=== PATIENT | female | born 1980 | race Caucasian/White ===

== ENCOUNTER 2017-07-18 21:23 | Emergency (ER) | payer MEDICAID ==
[2017-07-18] MEDS ORDERED: Sodium Chloride 0.9% 1,000 ML IV ONE (21:47)
[2017-07-18] MEDS ORDERED: Ondansetron 4 MG/2 ML SDV IVPUSH ONE (21:47)
[2017-07-18] MEDS ORDERED: Morphine 4 MG/ML Syringe IVPUSH ONE (22:50)
--- NOTE | 2017-07-18 23:02 | EDM.PDOC ---
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 There is concern of nonviable and eventual miscarriage patient is aware of this. No fever nausea vomiting chills sweats no low back pain vaginal discharge bleeding or fluid leakage [place] has history of 5 previous births resulting in viable infants no history of miscarriage/ LMP May 17 uncertain dates ] Review of systems: As per history of present illness and below otherwise all systems reviewed and negative. Past medical history: As per history of present illness and as reviewed below otherwise noncontributory. Surgical history: As per history of present illness and as reviewed below otherwise noncontributory. Social history: No reported history of drug or alcohol abuse. Family history: As per history of present illness and as reviewed below otherwise noncontributory. Physical exam: HEENT: Atraumatic, normocephalic, pupils reactive, negative for conjunctival pallor or scleral icterus, mucous membranes moist, throat clear, neck supple, nontender, trachea midline. Lungs: Clear to auscultation, breath sounds equal bilaterally, chest nontender. Heart: S1S2, regular, negative for clicks, rubs, or JVD. Abdomen: Soft, nondistended, nontender. Negative for masses or hepatosplenomegaly. Negative for costovertebral tenderness. Pelvis: Stable nontender. Genitourinary: External exam no mass scar or lesion internal exam no products conception no bleeding cervix is closed no cervical motion tenderness Rectal: Deferred. Extremities: Atraumatic, negative for cords or calf pain. Neurovascular unremarkable. Neuro: Awake, alert, oriented. Cranial nerves II through XII unremarkable. Cerebellum unremarkable. Motor and sensory unremarkable throughout. Exam nonfocal. Diagnostics: [CBC CMP UA hCG Quant ABO type OB ultrasound first trimester Therapeutics: [][place] Zofran Follow-up with OB as scheduled for continued management Impression: Pelvic pain Likely blighted ovum cervix closed 10 weeks by uncertain dates 7 weeks by ultrasound hCG levels do not correlate and are lower than yesterday [ABO type O positive] Definitive disposition and diagnosis as appropriate pending reevaluation and review of above. 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 ED EXAM, GENERAL - Physical Exam Exam: See Below Course - Vital Signs Last Recorded V/S: Last Vital Signs Temp 98 F 07/18/17 21:23 Pulse 93 07/18/17 21:23 Resp 18 07/18/17 21:23 BP 115/73 07/18/17 21:23 Pulse Ox 98 07/18/17 21:23 - Orders/Labs/Meds Orders: Active Orders 24 hr Category Date Time Status OB 1st Tri Sgl 1st Gest [US] Stat Exams 07/18/17 23:00 Taken UA W/MICROSCOPIC [URIN] Stat Lab 07/18/17 22:13 Ordered Labs: Laboratory Tests 07/18/17 07/18/17 07/18/17 Range/Units 22:02 22:02 22:02 WBC 9.95 (4.0-11.0) K/uL RBC 4.33 (4.30-5.90) M/uL Hgb 13.5 (12.0-16.0) g/dL Hct 39.2 (36.0-46.0) % MCV 90.5 (80.0-98.0) fL MCH 31.2 (27.0-32.0) pg MCHC 34.4 (31.0-37.0) g/dL RDW Std Deviation 41.1 (28.0-62.0) fl RDW Coeff of Sadiq 12 (11.0-15.0) % Plt Count 243 (150-400) K/uL MPV 8.70 (7.40-12.00) fL Neut % (Auto) 61.7 (48.0-80.0) % Lymph % (Auto) 30.4 (16.0-40.0) % Socorro % (Auto) 6.8 (0.0-15.0) % Eos % (Auto) 0.9 (0.0-7.0) % Baso % (Auto) 0.2 (0.0-1.5) % Neut # (Auto) 6.1 H (1.4-5.7) K/uL Lymph # (Auto) 3.0 H (0.6-2.4) K/uL Socorro # (Auto) 0.7 (0.0-0.8) K/uL Eos # (Auto) 0.1 (0.0-0.7) K/uL Baso # (Auto) 0.0 (0.0-0.1) K/uL Nucleated RBC % 0.0 /100WBC Nucleated RBCs # 0 K/uL Sodium 139 (136-145) mmol/L Potassium 3.6 (3.5-5.1) mmol/L Chloride 106 (98-107) mmol/L Carbon Dioxide 24.4 (21.0-32.0) mmol/L BUN 12 (7.0-18.0) mg/dL Creatinine 0.7 (0.6-1.0) mg/dL Est Cr Clr Drug Dosing 109.92 mL/min Estimated GFR (MDRD) > 60.0 ml/min Glucose 101 (74-106) mg/dL Calcium 9.0 (8.5-10.1) mg/dL Total Bilirubin 0.2 (0.2-1.0) mg/dL AST 12 L (15-37) IU/L ALT 20 (14-63) IU/L Alkaline Phosphatase 68 (46-116) U/L Total Protein 6.9 (6.4-8.2) g/dL Albumin 3.6 (3.4-5.0) g/dL Globulin 3.3 (2.0-3.5) g/dL Albumin/Globulin Ratio 1.1 L (1.3-2.8) HCG, Quant 9628.0 mIU/mL Urine Color Urine Appearance Urine pH (5.0-8.0) Ur Specific Reedy (1.001-1.035) Urine Protein (NEGATIVE) mg/dL Urine Glucose (UA) (NEGATIVE) mg/dL Urine Ketones (NEGATIVE) mg/dL Urine Occult Blood (NEGATIVE) Urine Nitrite (NEGATIVE) Urine Bilirubin (NEGATIVE) Urine Urobilinogen (<2.0) EU/dL Ur Leukocyte Esterase (NEGATIVE) Urine RBC (0-2/HPF) Urine WBC (0-5/HPF) Ur Epithelial Cells (NONE-FEW) Urine Bacteria (NEGATIVE) Urine Mucus (NONE-MOD) Blood Type O POSITIVE 07/18/17 Range/Units 22:13 WBC (4.0-11.0) K/uL RBC (4.30-5.90) M/uL Hgb (12.0-16.0) g/dL Hct (36.0-46.0) % MCV (80.0-98.0) fL MCH (27.0-32.0) pg MCHC (31.0-37.0) g/dL RDW Std Deviation (28.0-62.0) fl RDW Coeff of Sadiq (11.0-15.0) % Plt Count (150-400) K/uL MPV (7.40-12.00) fL Neut % (Auto) (48.0-80.0) % Lymph % (Auto) (16.0-40.0) % Socorro % (Auto) (0.0-15.0) % Eos % (Auto) (0.0-7.0) % Baso % (Auto) (0.0-1.5) % Neut # (Auto) (1.4-5.7) K/uL Lymph # (Auto) (0.6-2.4) K/uL Socorro # (Auto) (0.0-0.8) K/uL Eos # (Auto) (0.0-0.7) K/uL Baso # (Auto) (0.0-0.1) K/uL Nucleated RBC % /100WBC Nucleated RBCs # K/uL Sodium (136-145) mmol/L Potassium (3.5-5.1) mmol/L Chloride (98-107) mmol/L Carbon Dioxide (21.0-32.0) mmol/L BUN (7.0-18.0) mg/dL Creatinine (0.6-1.0) mg/dL Est Cr Clr Drug Dosing mL/min Estimated GFR (MDRD) ml/min Glucose (74-106) mg/dL Calcium (8.5-10.1) mg/dL Total Bilirubin (0.2-1.0) mg/dL AST (15-37) IU/L ALT (14-63) IU/L Alkaline Phosphatase (46-116) U/L Total Protein (6.4-8.2) g/dL Albumin (3.4-5.0) g/dL Globulin (2.0-3.5) g/dL Albumin/Globulin Ratio (1.3-2.8) HCG, Quant mIU/mL Urine Color YELLOW Urine Appearance CLEAR Urine pH 6.0 (5.0-8.0) Ur Specific Reedy 1.020 (1.001-1.035) Urine Protein NEGATIVE (NEGATIVE) mg/dL Urine Glucose (UA) NEGATIVE (NEGATIVE) mg/dL Urine Ketones NEGATIVE (NEGATIVE) mg/dL Urine Occult Blood NEGATIVE (NEGATIVE) Urine Nitrite NEGATIVE (NEGATIVE) Urine Bilirubin NEGATIVE (NEGATIVE) Urine Urobilinogen 0.2 (<2.0) EU/dL Ur Leukocyte Esterase NEGATIVE (NEGATIVE) Urine RBC NONE SEEN (0-2/HPF) Urine WBC 0-1 (0-5/HPF) Ur Epithelial Cells OCCASIONAL (NONE-FEW) Urine Bacteria RARE (NEGATIVE) Urine Mucus LIGHT (NONE-MOD) Blood Type Meds: Medications Discontinued Medications Generic Name Dose Route Start Last Admin Trade Name Mitesh PRN Reason Stop Dose Admin Sodium Chloride 1,000 mls @ 999 mls/hr 07/18/17 21:47 07/18/17 22:09 Normal Saline IV 07/18/17 22:47 999 mls/hr STAT ONE Administration Morphine Sulfate 2 mg 07/18/17 22:50 07/18/17 23:08 Morphine IVPUSH 07/18/17 22:51 2 mg ONETIME ONE Administration Ondansetron HCl 8 mg 07/18/17 21:47 07/18/17 22:10 Zofran IVPUSH 07/18/17 21:48 8 mg ONETIME ONE Administration Departure - Departure Time of Disposition: 00:47 Disposition: Home, Self-Care 01 Condition: Good Clinical Impression: Pelvic pain - Discharge Information Referrals: Sahra Mckee DO [Primary Care Provider] - Forms: ED Department Discharge Additional Instructions: The following information is given to patients seen in the emergency department who are being discharged to home. This information is to outline your options for follow-up care. We provide all patients seen in our emergency department with a follow-up referral. The need for follow-up, as well as the timing and circumstances, are variable depending upon the specifics of your emergency department visit. If you don't have a primary care physician on staff, we will provide you with a referral. We always advise you to contact your personal physician following an emergency department visit to inform them of the circumstance of the visit and for follow-up with them and/or the need for any referrals to a consulting specialist. The emergency department will also refer you to a specialist when appropriate. This referral assures that you have the opportunity for follow-up care with a specialist. All of these measure are taken in an effort to provide you with optimal care, which includes your follow-up. Under all circumstances we always encourage you to contact your private physician who remains a resource for coordinating your care. When calling for follow-up care, please make the office aware that this follow-up is from your recent emergency room visit. If for any reason you are refused follow-up, please contact the [facility] emergency department at and asked to speak to the emergency department charge nurse. - My Orders Last 24 Hours: My Active Orders 07/18/17 22:13 UA W/MICROSCOPIC [URIN] Stat 07/18/17 23:00 OB 1st Tri Sgl 1st Gest [US] Stat - Assessment/Plan Last 24 Hours: My Active Orders 07/18/17 22:13 UA W/MICROSCOPIC [URIN] Stat 07/18/17 23:00 OB 1st Tri Sgl 1st Gest [US] Stat
[2017-07-18 23:09] LABS: CHLORIDE,CL 106 mmol/L (98-107); SODIUM,NA 139 mmol/L (136-145)
--- NOTE | 2017-07-19 09:53 | US ---
EXAM DATE: 07/18/17 PATIENT'S AGE: 37 Patient: CHATA DANIELLE Facility: [place], [place] Site . Site : [id number] Study: US OB Pelvis -07/18/2017 11:56:16 PM Ordering Physician: Dario Shepard Final Report: HISTORY: Severe cramping, 10 weeks . FINDINGS: Mild grayscale static images from a transabdominal OB ultrasound were evaluated. The uterus measures 10.6 x 8.0 x 7.7 cm. It contains an irregularly shaped gestational sac measuring 3.6 x 1.5 x 2.4 cm with a mean sac diameter of 2.49 cm consistent with 7 weeks 5 days. This is not correlate with LMP date of 10 weeks 2 days. No yolk sac or pole is identified. The right ovary measures 4.8 x 3.2 x 2.4 cm and is normal in appearance. The left ovary measures 3.5 x 1.5 x 2.3 cm and is normal in appearance. IMPRESSION: Irregularly shaped gestational sac with mean sac diameter of 2.49 cm cyst and with 7 weeks 5 days. It does not contain a yolk sac or pole. This is suspicious for a nonviable . Current criteria for definite failure includes nonvisualization of an embryo in a gestational sac with mean sac diameter of at least 2.5 mm. Consider close interval follow up to confirm nonviable . Dictated by Kristin Ocampo MD @ 07/19/2017 12:06:57 AM Dictated by: Kristin Ocampo MD @ 07/19/2017 00:07:50 (Electronic Signature) Report Signed by Proxy. LING
[2017-07-19] MEDS ORDERED: Propofol 200 MG/20 ML SDV ONE (10:54)
[2017-07-19] MEDS ORDERED: Midazolam 1 MG/ML 2 ML SDV ONE (10:54)
[2017-07-19] MEDS ORDERED: fentaNYL 100 MCG/2 ML SDV ONE (10:54)
[2017-07-19] MEDS ORDERED: diphenhydrAMINE 50 MG/ML SDV ONE (10:55)
[2017-07-19] MEDS ORDERED: Ondansetron 4 MG/2 ML SDV ONE (10:55)
== END 2017-07-19 01:02 | disposition home or self-care (01) ==
LOC: MW.ED 21:23
DX: O99.89 Other specified diseases and conditions complicating pregnancy, childbirth and the puerperium (principal); R10.2 Pelvic and perineal pain; O99.311 Alcohol use complicating pregnancy, first trimester; F17.210 Nicotine dependence, cigarettes, uncomplicated; Z3A.10 10 weeks gestation of pregnancy
CPT/HCPCS: 36415; 76801; 80053; 81001; 84702; 85025; 86900; 86901; 96361; 96374; 96375; 99284; J1200; J2250; J2270; J2405; J3010; J7040; 99283; J2704

== ENCOUNTER 2017-07-19 10:52 | Day surgery (SDC) | payer MEDICAID ==
[2017-07-19] MEDS ORDERED: Lactated Ringers 1,000 ML IV SCH ×2 (11:30→18:45)
[2017-07-19] MEDS ORDERED: Doxycycline 200 MG in Dextrose 5% in Water 250 ML IV SCH ×2 (11:45)
--- NOTE | 2017-07-19 11:48 | PCM.PREANE ---
Preanesthetic Assessment - Anesthesia/Transfusion/Family Hx Anesthesia History: Prior Anesthesia Without Reaction Family History of Anesthesia Reaction: No Transfusion History: No Prior Transfusion(s) Intubation History: Unknown - Review of Systems General: No Symptoms Pulmonary: No Symptoms Cardiovascular: No Symptoms Gastrointestinal: Abdominal Pain Neurological: No Symptoms Other: Reports: None - Physical Assessment O2 Sat by Pulse Oximetry: 97 Respiratory Rate: 16 Vital Signs: Last Vital Signs Temp 36.7 C 07/19/17 11:21 Pulse 70 07/19/17 11:21 Resp 16 07/19/17 11:21 BP 107/58 L 07/19/17 11:21 Pulse Ox 97 07/19/17 11:21 Height: 1.73 m Weight: 99.337 kg ASA Class: 2E Mental Status: Alert & Oriented x3 Airway Class: Mallampati = 2 Dentition: Reports: Normal Dentition Thyro-Mental Finger Breadths: 3 Mouth Opening Finger Breadths: 3 ROM/Head Extension: Full Lungs: Clear to Auscultation, Normal Respiratory Effort Cardiovascular: Regular Rate, Regular Rhythm - Allergies Allergies/Adverse Reactions: Allergies Allergy/AdvReac Type Severity Reaction Status Date / Time No Known Allergies Allergy Verified 07/19/17 10:56 - Blood Blood Available: No - Anesthesia Plan Pre-Op Medication Ordered: None - Acknowledgements Anesthesia Type Planned: General Anesthesia Pt an Appropriate Candidate for the Planned Anesthesia: Yes Alternatives and Risks of Anesthesia Discussed w Pt/Guardian: Yes Pt/Guardian Understands and Agrees with Anesthesia Plan: Yes PreAnesthesia Questionnaire HEENT History: Reports: Hard of Hearing, Other (See Below) Other HEENT History: wears glasses, has right hearing aide Gastrointestinal History: Reports: Other (See Below) (h/o gastric ulcer '12) 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: Musculoskeletal History: Reports: Back Pain, Chronic Other Musculoskeletal History: has spinal stenosis Neurological History: Reports: Concussion, Migraines, Other (See Below) Other Neuro History: hx of motion sickness Psychiatric History: Reports: Anxiety, Depression Other Psychiatric History: has not taken any meds during this Endocrine/Metabolic History: Reports: Obesity/BMI 30+ - Past Surgical History HEENT Surgical History: Reports: Oral Surgery Other HEENT Surgeries/Procedures: wisdom teeth Female Surgical History: Reports: Section - SUBSTANCE USE Smoking Status *Q: Current Every Day Smoker (1/2 ppd) Tobacco Use Within Last Twelve Months: Cigarettes Recreational Drug Use History: No - HOME MEDS Home Medications: Home Meds #103/Iron Fumarate/Fa [ ] 1 tab PO DAILY 07/18/17 [ History] - CURRENT (IN HOUSE) MEDS Current Meds: Current Medications Lactated Ringer's (Ringers, Lactated) 1,000 mls @ 100 mls/hr IV ASDIRECTED SELVIN Doxycycline Hyclate 200 mg/ (Dextrose/Water) 250 mls @ 125 mls/hr IV Q12H SELVIN
[2017-07-19] MEDS ORDERED: ceFAZolin 2 GM in Premix Bag 1 BAG IV ONE (11:50)
[2017-07-19] MEDS: fentaNYL 100 MCG/2 ML SDV IVPUSH PRN ×2 (12:02→12:52)
[2017-07-19] MEDS ORDERED: fentaNYL 100 MCG/2 ML SDV ONE (16:21)
[2017-07-19] MEDS ORDERED: Propofol 200 MG/20 ML SDV ONE (16:21)
[2017-07-19] MEDS ORDERED: Midazolam 1 MG/ML 2 ML SDV ONE (16:22)
[2017-07-19] MEDS ORDERED: Lidocaine 2% 5 ML SDV ONE (16:22)
[2017-07-19] MEDS ORDERED: Carboprost Tromethamine 250 MCG/1 ML Amp ONE (17:08)
[2017-07-19] MEDS ORDERED: Methylergonovine 0.2 MG/1 ML Amp ONE (17:08)
[2017-07-19] MEDS ORDERED: HYDROmorphone 2 MG/ML SDV ONE (17:17)
[2017-07-19] MEDS ORDERED: Dexamethasone 4 MG/ML 5 ML MDV ONE (17:57)
[2017-07-19] MEDS ORDERED: ceFAZolin/Dextrose,Iso-Osmotic 2 GM/50 ML Duplex Bag IV ONE (18:03)
[2017-07-19] MEDS ORDERED: Ketorolac 30 MG/ML SDV ONE (18:17)
[2017-07-19] MEDS ORDERED: Ondansetron 4 MG/2 ML SDV ONE (18:18)
--- NOTE | 2017-07-19 18:31 | PCM.OPNOTE ---
- General Post-Op/Procedure Note Date of Surgery/Procedure: 07/19/17 Operative Procedure(s): Suction dilatation and curettage Findings: Anteverted mobile uterus, 7 weeks size. Closed cervix. Moderate amount of POC retrieved. Pre Op Diagnosis: Missed Post-Op Diagnosis: Same Anesthesia Technique: General LMA Primary Surgeon: Wandy Mcallister Pathology: Products of conception Fluid Replacement, Intraop: 2,000 EBL in mLs: 100 Complications: None Condition: Good
[2017-07-19] MEDS ORDERED: Acetaminophen/oxyCODONE 325-5 MG Tab PO PRN (18:33)
--- NOTE | 2017-07-19 18:50 | PCM.POSTAN ---
POST ANESTHESIA ASSESSMENT - MENTAL STATUS Mental Status: Alert, Oriented - RESPIRATORY Respiratory Status: Respiratory Rate WNL, Airway Patent, O2 Saturation Stable - CARDIOVASCULAR CV Status: Pulse Rate WNL, Blood Pressure Stable - GASTROINTESTINAL GI Status: No Symptoms - PAIN Pain Score: 0 - POST OP HYDRATION Hydration Status: Adequate & Stable
--- NOTE | 2017-07-19 21:07 | OR ---
SURGEON: aWndy Mcallister MD DATE OF PROCEDURE: 07/19/2017 PREOPERATIVE DIAGNOSIS: Missed . POSTOPERATIVE DIAGNOSIS: Missed . PROCEDURE: Suction, dilatation, and curettage. ANESTHESIA: General LMA. IV FLUIDS: 2000 mL. ESTIMATED BLOOD LOSS: 100 mL. COMPLICATIONS: None. DISPOSITION: The patient was taken to recovery room in a stable condition. FINDINGS: Anteverted mobile uterus 7-week size. No adnexal masses. Cervix was closed. BRIEF HISTORY: The patient is a 37-year-old G6, P5, who on her first visit was to have had an irregular gestational sac with a pole of approximately 7 weeks' size and no cardiac activity at the time. A followup ultrasound performed a week later confirmed Ist trimester demise and she was due to come in next week to discuss management options, but then she presented to the ER last night with severe lower abdominal pain with no associated vaginal bleeding or abnormal discharge Repeat sonogram in the ER confirmed missed and her beta quantitative serum hCG had dropped significantly. This morning, she presented to the office still complaining of pelvic pain, with no bleeding. Management options were discussed with her and she opted to proceed with surgical management. Given the fact that she was in a considerable amount of pain, the procedure was scheduled for later today. Risks and benefits of the procedure were discussed extensively with her and appropriate consent was obtained. Blood type is O positive. DESCRIPTION OF PROCEDURE: The patient was taken to the operating room where induction of general anesthesia was performed without difficulty. After adequate level of anesthesia, she was placed in dorsal lithotomy position, prepped and draped in the usual sterile fashion for vaginal surgery. Appropriate time-out was performed. Ancef 2 g was given. Examination under anesthesia revealed the aforementioned findings. A medium weighted speculum was placed in the posterior wall of the vagina and the anterior lip of the cervix was grasped with an Allis clamp. The cervical os was serially dilated up to #9 Hegar dilator and a suction curettage was then performed with a 9 mm curved plastic cannula. Moderate amount of tissue retrieved. Gentle curettage was performed with a large curette retrieving more products of conception until grittiness of the cavity was felt. After this, the procedure was completed. All instruments were removed from the vagina. The area in which the Allis clamp was placed was found to be hemostatic. Sponge, lap, and instrument counts were correct at the end of the procedure. She was taken to the recovery room in stable condition. DAVIDSON / FABIANO /[id number] MTDD
--- NOTE | 2017-07-20 07:30 | PCM48HPAN ---
Post Anesthesia Note - EVALUATION WITHIN 48HRS OF ANESTHETIC Vital Signs in Normal Range: Yes Patient Participated in Evaluation: Yes Respiratory Function Stable: Yes Airway Patent: Yes Cardiovascular Function Stable: Yes Hydration Status Stable: Yes Pain Control Satisfactory: Yes Nausea and Vomiting Control Satisfactory: Yes Mental Status Recovered: Yes Resp Rate: 18
--- NOTE | 2017-07-20 13:07 | PCM.SN ---
- Free Text/Narrative Note: The following medications were wasted by Merna Foster CRNA in my presence due to the unavailability of the information in the Datalot system. Propofol 200 mg Fentanyl 100 mcg Versed 2 mg Lidocaine 2% (100 mg) TOMASZ
== END 2017-07-19 21:20 | disposition home or self-care (01) ==
LOC: MW.SDS 10:52 → MW.MS 19:42 → MW.SDS 21:20
PROVIDERS: ATTEND Obstetrics & Gynecology
DX: O02.1 Missed abortion (principal); F41.9 Anxiety disorder, unspecified; F32.9 Major depressive disorder, single episode, unspecified; M48.00 Spinal stenosis, site unspecified; F17.210 Nicotine dependence, cigarettes, uncomplicated; G43.909 Migraine, unspecified, not intractable, without status migrainosus; E66.9 Obesity, unspecified; Z68.30 Body mass index [BMI] 30.0-30.9, adult
CPT/HCPCS: 36415; 59820; 85025; 86850; 86900; 86901; A9270; J0690; J1100; J1170; J1885; J2250; J2405; J3010; J7120; 01965; 88305; J2704

== ENCOUNTER 2017-12-19 04:59 | Observation (INO) | payer MEDICAID ==
[2017-12-19] MEDS ORDERED: Water For Irrigation,Sterile 1,000 ML Container IRR PRN (05:07)
[2017-12-19] MEDS ORDERED: Carboprost Tromethamine 250 MCG/1 ML Amp IM PRN (05:07)
[2017-12-19] MEDS ORDERED: Methylergonovine 0.2 MG/1 ML Amp IM PRN (05:07)
[2017-12-19] MEDS ORDERED: Sodium Chloride 0.9% 10 ML Syringe FLUSH PRN (05:07)
[2017-12-19] MEDS ORDERED: Tranexamic Acid 1,000 MG in Sodium Chloride 0.9% 100 ML IV PRN (05:07)
[2017-12-19] MEDS ORDERED: Nalbuphine 10 MG/1 ML Vial IVPUSH PRN (05:07)
[2017-12-19] MEDS ORDERED: Sodium Chloride 0.9% 2.5 ML Syringe FLUSH PRN (05:07)
[2017-12-19] MEDS ORDERED: Lidocaine 1% 50 ML MDV INJECT PRN (05:07)
[2017-12-19] MEDS ORDERED: Misoprostol 200 MCG Tab PO PRN (05:07)
[2017-12-19] MEDS: Misoprostol 200 MCG Tab VAG SCH ×2 (06:28→13:26)
[2017-12-19] MEDS: Butorphanol 1 MG/ML SDV IVPUSH PRN ×5 (07:52→12:38)
--- NOTE | 2017-12-19 09:35 | PCM.PN ---
- General Info Date of Service: 12/19/17 - Review of Systems General: Denies: Fever Pulmonary: Denies: Shortness of Breath Cardiovascular: Denies: Chest Pain, Palpitations, Lightheadedness Gastrointestinal: Denies: Nausea, Vomiting Genitourinary: Denies: Flank Pain - Patient Data Weight - Most Recent: 105.233 kg Lab Results Last 24 Hours: Laboratory Results - last 24 hr 12/19/17 12/19/17 12/19/17 Range/Units 05:37 05:37 05:37 WBC 8.50 (4.0-11.0) K/uL RBC 4.23 L (4.30-5.90) M/uL Hgb 13.0 (12.0-16.0) g/dL Hct 37.5 (36.0-46.0) % MCV 88.7 (80.0-98.0) fL MCH 30.7 (27.0-32.0) pg MCHC 34.7 (31.0-37.0) g/dL RDW Std Deviation 40.4 (28.0-62.0) fl RDW Coeff of Sadiq 13 (11.0-15.0) % Plt Count 236 (150-400) K/uL MPV 8.60 (7.40-12.00) fL Nucleated RBC % 0.0 /100WBC Nucleated RBCs # 0 K/uL Free T4 0.86 (0.76-1.46) ng/dL TSH 3rd Generation 1.58 (0.36-3.74) uIU/mL Blood Type O POSITIVE Antibody Screen NEGATIVE Med Orders - Current: Current Medications Butorphanol Tartrate (Stadol) 1 mg IVPUSH Q1H PRN PRN Reason: Pain Last Admin: 12/19/17 09:20 Dose: 1 mg Carboprost Tromethamine (Hemabate Ds) 250 mcg IM ASDIRECTED PRN PRN Reason: Post Hemorrhage Lactated Ringer's (Ringers, Lactated) 1,000 mls @ 150 mls/hr IV ASDIRECTED SELVIN Tranexamic Acid 1,000 mg/ (Sodium Chloride) 110 mls @ 660 mls/hr IV ONETIME PRN PRN Reason: Bleeding Lidocaine HCl (Xylocaine 1%) 50 ml INJECT ONETIME PRN PRN Reason: Laceration repair Methylergonovine Maleate (Methergine) 0.2 mg IM ASDIRECTED PRN PRN Reason: Post Hemorrhage Misoprostol (Cytotec) 200 mcg PO ONETIME PRN PRN Reason: Post Hemorrhage Misoprostol (Cytotec) 800 mcg VAG Q6H SELVIN Last Admin: 12/19/17 06:28 Dose: 800 mcg Nalbuphine HCl (Nubain) 10 mg IVPUSH Q1H PRN PRN Reason: Pain (severe 7-10) Sodium Chloride (Saline Flush) 10 ml FLUSH ASDIRECTED PRN PRN Reason: Keep Vein Open Sodium Chloride (Saline Flush) 2.5 ml FLUSH ASDIRECTED PRN PRN Reason: Keep Vein Open Sterile Water (Sterile Water For Irrigation) 1,000 ml IRR ASDIRECTED PRN PRN Reason: delivery - Exam General: Alert Lungs: Normal Respiratory Effort Cardiovascular: Regular Rate, Regular Rhythm GI/Abdominal Exam: Normal Bowel Sounds, Soft Back Exam: No: CVA Tenderness (L), CVA Tenderness (R) Extremities: No Pedal Edema. No: Erika's Sign Skin: Warm, Dry, Intact - Problem List Review Problem List Initiated/Reviewed/Updated: Yes - My Orders Last 24 Hours: My Active Orders 12/19/17 05:07 Butorphanol [Stadol] 1 mg IVPUSH Q1H PRN Carboprost Tromethamine [Hemabate DS] 250 mcg IM ASDIRECTED PRN Lidocaine 1% [Xylocaine 1%] 50 ml INJECT ONETIME PRN Methylergonovine [Methergine] 0.2 mg IM ASDIRECTED PRN Nalbuphine [Nubain] 10 mg IVPUSH Q1H PRN Sodium Chloride 0.9% [Saline Flush] 10 ml FLUSH ASDIRECTED PRN Sodium Chloride 0.9% [Saline Flush] 2.5 ml FLUSH ASDIRECTED PRN Tranexamic Acid [Cyklokapron] 1,000 mg Sodium Chloride 0.9% [Normal Saline] 100 ml IV ONETIME Water For Irrigation,Sterile [Sterile Water for Irrigation] 1,000 ml IRR ASDIRECTED PRN miSOPROStol [Cytotec] 200 mcg PO ONETIME PRN Resuscitation Status Routine 12/19/17 05:08 Patient Status [ADT] Routine May Shower [RC] ASDIRECTED Up ad Benita [RC] ASDIRECTED Vaginal Exam [RC] PRN Vital Signs [RC] PER UNIT ROUTINE Peripheral IV Insertion Adult [OM.PC] Routine 12/19/17 05:15 Lactated Ringers [Ringers, Lactated] 1,000 ml IV ASDIRECTED 12/19/17 05:30 miSOPROStol [Cytotec] 800 mcg VAG Q6H 12/19/17 05:37 ANTICARDIOLIPIN AB, IGG, QN [REF] Routine ANTICARDIOLIPIN AB, IGM, QN [REF] Routine THYROID PEROXIDASE (TPO) AB [REF] Routine 12/19/17 Breakfast Clear Liquid Diet [DIET] - Assessment Assessment:: 16 week demise - Plan Plan:: Patient has received initial dose of cytotec and is quite uncomfortable all ready. Discussed plan of care for the day.Patient voices understanding. IV stadol is helping to control pain from cramping
[2017-12-19] MEDS ORDERED: Oxytocin/0.9 % Sodium Chloride 30 UNIT/500 ML BAG IV SCH (12:00)
[2017-12-19] MEDS: Lactated Ringers 1,000 ML IV SCH ×2 (12:19→13:35)
[2017-12-19] MEDS ORDERED: Promethazine 25 MG/ML SDV IM ONE (12:37)
[2017-12-19] MEDS ORDERED: Ropivacaine 0.2% 2 MG/ML 20 ML SDV ONE (12:46)
--- NOTE | 2017-12-19 13:39 | PCM.PREANE ---
Preanesthetic Assessment - Anesthesia/Transfusion/Family Hx Anesthesia History: Prior Anesthesia Without Reaction Family History of Anesthesia Reaction: No Transfusion History: No Prior Transfusion(s) Intubation History: Unknown - Review of Systems General: No Symptoms Pulmonary: No Symptoms Cardiovascular: No Symptoms Gastrointestinal: No Symptoms Neurological: No Symptoms Other: Reports: None - Physical Assessment NPO Status Date: 12/18/17 Height: 1.7 m Weight: 105.233 kg ASA Class: 2 Mental Status: Alert & Oriented x3 Airway Class: Mallampati = 1 Dentition: Reports: Normal Dentition ROM/Head Extension: Full Lungs: Clear to Auscultation, Normal Respiratory Effort Cardiovascular: Regular Rate, Regular Rhythm - Lab Values: Laboratory Last Values WBC 8.50 K/uL (4.0-11.0) 12/19/17 05:37 RBC 4.23 M/uL (4.30-5.90) L 12/19/17 05:37 Hgb 13.0 g/dL (12.0-16.0) 12/19/17 05:37 Hct 37.5 % (36.0-46.0) 12/19/17 05:37 MCV 88.7 fL (80.0-98.0) 12/19/17 05:37 MCH 30.7 pg (27.0-32.0) 12/19/17 05:37 MCHC 34.7 g/dL (31.0-37.0) 12/19/17 05:37 RDW Std Deviation 40.4 fl (28.0-62.0) 12/19/17 05:37 RDW Coeff of Sadiq 13 % (11.0-15.0) 12/19/17 05:37 Plt Count 236 K/uL (150-400) 12/19/17 05:37 MPV 8.60 fL (7.40-12.00) 12/19/17 05:37 Nucleated RBC % 0.0 /100WBC 12/19/17 05:37 Nucleated RBCs # 0 K/uL 12/19/17 05:37 Free T4 0.86 ng/dL (0.76-1.46) 12/19/17 05:37 TSH 3rd Generation 1.58 uIU/mL (0.36-3.74) 12/19/17 05:37 Blood Type O POSITIVE 12/19/17 05:37 Antibody Screen NEGATIVE 12/19/17 05:37 - Allergies Allergies/Adverse Reactions: Allergies Allergy/AdvReac Type Severity Reaction Status Date / Time No Known Allergies Allergy Verified 07/19/17 10:56 - Blood Blood Available: Yes - Anesthesia Plan Pre-Op Medication Ordered: None - Acknowledgements Anesthesia Type Planned: Epidural Pt an Appropriate Candidate for the Planned Anesthesia: Yes Alternatives and Risks of Anesthesia Discussed w Pt/Guardian: Yes Pt/Guardian Understands and Agrees with Anesthesia Plan: Yes PreAnesthesia Questionnaire HEENT History: Reports: Hard of Hearing, Other (See Below) Other HEENT History: wears glasses, has right hearing aide Cardiovascular History: Reports: None Respiratory History: Reports: None Gastrointestinal History: Reports: None, Other (See Below) Genitourinary History: Reports: None 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: , Spontaneous Musculoskeletal History: Reports: Back Pain, Chronic Other Musculoskeletal History: has spinal stenosis Neurological History: Reports: Concussion, Head Trauma, Migraines, Other (See Below) Other Neuro History: hx of motion sickness Psychiatric History: Reports: Anxiety, Depression Other Psychiatric History: has not taken any meds during this Endocrine/Metabolic History: Reports: Obesity/BMI 30+ Hematologic History: Reports: None Immunologic History: Reports: None Oncologic (Cancer) History: Reports: None Dermatologic History: Reports: None - Infectious Disease History Infectious Disease History: Reports: Influenza, Mononucleosis - Past Surgical History HEENT Surgical History: Reports: Oral Surgery Other HEENT Surgeries/Procedures: wisdom teeth Female Surgical History: Reports: Section, D&C - SUBSTANCE USE Smoking Status *Q: Never Smoker Recreational Drug Use History: No - HOME MEDS Home Medications: Home Meds #103/Iron Fumarate/Fa [ ] 1 tab PO DAILY 07/18/17 [ History] - CURRENT (IN HOUSE) MEDS Current Meds: Current Medications Butorphanol Tartrate (Stadol) 1 mg IVPUSH Q1H PRN PRN Reason: Pain Last Admin: 12/19/17 12:38 Dose: 1 mg Carboprost Tromethamine (Hemabate Ds) 250 mcg IM ASDIRECTED PRN PRN Reason: Post Hemorrhage Lactated Ringer's (Ringers, Lactated) 1,000 mls @ 150 mls/hr IV ASDIRECTED SELVIN Last Admin: 12/19/17 13:35 Dose: 150 mls/hr Tranexamic Acid 1,000 mg/ (Sodium Chloride) 110 mls @ 660 mls/hr IV ONETIME PRN PRN Reason: Bleeding Oxytocin/Sodium Chloride (Oxytocin 30 Unit/500 Ml-Ns) 30 unit in 500 mls @ 999 mls/hr IV SEECOMMENT [facility]; Protocol Lidocaine HCl (Xylocaine 1%) 50 ml INJECT ONETIME PRN PRN Reason: Laceration repair Methylergonovine Maleate (Methergine) 0.2 mg IM ASDIRECTED PRN PRN Reason: Post Hemorrhage Misoprostol (Cytotec) 200 mcg PO ONETIME PRN PRN Reason: Post Hemorrhage Misoprostol (Cytotec) 800 mcg VAG Q6H [facility] Last Admin: 12/19/17 13:26 Dose: Not Given Nalbuphine HCl (Nubain) 10 mg IVPUSH Q1H PRN PRN Reason: Pain (severe 7-10) Sodium Chloride (Saline Flush) 10 ml FLUSH ASDIRECTED PRN PRN Reason: Keep Vein Open Sodium Chloride (Saline Flush) 2.5 ml FLUSH ASDIRECTED PRN PRN Reason: Keep Vein Open Sterile Water (Sterile Water For Irrigation) 1,000 ml IRR ASDIRECTED PRN PRN Reason: delivery Discontinued Medications Fentanyl/Bupivacaine HCl (Nwimjmzg-Joijw-Bx 2 Mcg/Ml-0.125%) Confirm Administered Dose 100 mls @ as directed EP .STK-MED ONE Stop: 12/19/17 12:47 Promethazine HCl (Phenergan) 25 mg IM ONETIME ONE Stop: 12/19/17 12:38 Last Admin: 12/19/17 12:42 Dose: 25 mg Ropivacaine (Naropin 0.2%) Confirm Administered Dose 20 ml .ROUTE .STK-MED ONE Stop: 12/19/17 12:47
[2017-12-19] MEDS ORDERED: Acetaminophen 500 MG Tab PO PRN ×2 (17:43)
[2017-12-19] MEDS ORDERED: Bisacodyl 10 MG Supp RECTAL PRN (17:43)
[2017-12-19] MEDS ORDERED: Benzocaine/Menthol 20%-0.5% Spray 78 GM Cannister TOP PRN (17:43)
[2017-12-19] MEDS ORDERED: Lanolin 100% Cream 7 GM Tube TOP PRN (17:43)
[2017-12-19] MEDS ORDERED: Docusate Sodium 100 MG Cap PO PRN (17:43)
[2017-12-19] MEDS ORDERED: Witch Hazel Medicated Pads 40/Jar TOP PRN (17:43)
[2017-12-19] MEDS ORDERED: Ibuprofen 400 MG Tab PO PRN (17:43)
--- NOTE | 2017-12-19 17:50 | PCM.DEL ---
L & D Note - General Info Date of Service: 12/19/17 - Delivery Note Cervical Ripening Method: Prostaglandin E2 Delivery Outcome: Miscarriage Infant Delivery Method: Spontaneous Vaginal Delivery-Single Anesthesia Type: Epidural Episiotomy Type: None Laceration: None Placenta: Intact, Spontaneous - General Info Date of Service: 12/19/17 - Review of Systems General: Reports: No Symptoms HEENT: Reports: No Symptoms Pulmonary: Reports: No Symptoms Cardiovascular: Reports: No Symptoms Gastrointestinal: Reports: No Symptoms Genitourinary: Reports: No Symptoms Musculoskeletal: Reports: Back Pain - Patient Data Weight - Most Recent: 105.233 kg Lab Results Last 24 Hours: Laboratory Results - last 24 hr 12/19/17 12/19/17 12/19/17 Range/Units 05:37 05:37 05:37 WBC 8.50 (4.0-11.0) K/uL RBC 4.23 L (4.30-5.90) M/uL Hgb 13.0 (12.0-16.0) g/dL Hct 37.5 (36.0-46.0) % MCV 88.7 (80.0-98.0) fL MCH 30.7 (27.0-32.0) pg MCHC 34.7 (31.0-37.0) g/dL RDW Std Deviation 40.4 (28.0-62.0) fl RDW Coeff of Sadiq 13 (11.0-15.0) % Plt Count 236 (150-400) K/uL MPV 8.60 (7.40-12.00) fL Nucleated RBC % 0.0 /100WBC Nucleated RBCs # 0 K/uL Free T4 0.86 (0.76-1.46) ng/dL TSH 3rd Generation 1.58 (0.36-3.74) uIU/mL Blood Type O POSITIVE Antibody Screen NEGATIVE Med Orders - Current: Current Medications Butorphanol Tartrate (Stadol) 1 mg IVPUSH Q1H PRN PRN Reason: Pain Last Admin: 12/19/17 12:38 Dose: 1 mg Carboprost Tromethamine (Hemabate Ds) 250 mcg IM ASDIRECTED PRN PRN Reason: Post Hemorrhage Lactated Ringer's (Ringers, Lactated) 1,000 mls @ 150 mls/hr IV ASDIRECTED SELVIN Last Admin: 12/19/17 13:35 Dose: 150 mls/hr Tranexamic Acid 1,000 mg/ (Sodium Chloride) 110 mls @ 660 mls/hr IV ONETIME PRN PRN Reason: Bleeding Oxytocin/Sodium Chloride (Oxytocin 30 Unit/500 Ml-Ns) 30 unit in 500 mls @ 999 mls/hr IV SEECOMMENT [facility]; Protocol Last Admin: 12/19/17 16:40 Dose: 999 munits/min, 999 mls/hr Methylergonovine Maleate (Methergine) 0.2 mg IM ASDIRECTED PRN PRN Reason: Post Hemorrhage Sodium Chloride (Saline Flush) 10 ml FLUSH ASDIRECTED PRN PRN Reason: Keep Vein Open Sodium Chloride (Saline Flush) 2.5 ml FLUSH ASDIRECTED PRN PRN Reason: Keep Vein Open Discontinued Medications Fentanyl/Bupivacaine HCl (Pvvldesb-Xxoje-Fa 2 Mcg/Ml-0.125%) Confirm Administered Dose 100 mls @ as directed EP .STK-MED ONE Stop: 12/19/17 12:47 Lidocaine HCl (Xylocaine 1%) 50 ml INJECT ONETIME PRN PRN Reason: Laceration repair Misoprostol (Cytotec) 200 mcg PO ONETIME PRN PRN Reason: Post Hemorrhage Misoprostol (Cytotec) 800 mcg VAG Q6H [facility] Last Admin: 12/19/17 13:26 Dose: Not Given Nalbuphine HCl (Nubain) 10 mg IVPUSH Q1H PRN PRN Reason: Pain (severe 7-10) Promethazine HCl (Phenergan) 25 mg IM ONETIME ONE Stop: 12/19/17 12:38 Last Admin: 12/19/17 12:42 Dose: 25 mg Ropivacaine (Naropin 0.2%) Confirm Administered Dose 20 ml .ROUTE .STK-MED ONE Stop: 12/19/17 12:47 Sterile Water (Sterile Water For Irrigation) 1,000 ml IRR ASDIRECTED PRN PRN Reason: delivery - Exam General: Alert, Oriented Lungs: Normal Respiratory Effort Cardiovascular: Regular Rate, Regular Rhythm GI/Abdominal Exam: Normal Bowel Sounds, Soft (Female) Exam: Normal External Exam Back Exam: No: CVA Tenderness (L), CVA Tenderness (R) Extremities: Normal Inspection. No: Pedal Edema, Erika's Sign Skin: Warm, Dry, Intact Psy/Mental Status: Alert - Problem List & Annotations (1) Missed SNOMED Code(s): 85032174 Code(s): O02.1 - MISSED Status: Acute Current Visit: No - Problem List Review Problem List Initiated/Reviewed/Updated: Yes - My Orders Last 24 Hours: My Active Orders 12/19/17 05:07 Butorphanol [Stadol] 1 mg IVPUSH Q1H PRN Carboprost Tromethamine [Hemabate DS] 250 mcg IM ASDIRECTED PRN Methylergonovine [Methergine] 0.2 mg IM ASDIRECTED PRN Sodium Chloride 0.9% [Saline Flush] 10 ml FLUSH ASDIRECTED PRN Sodium Chloride 0.9% [Saline Flush] 2.5 ml FLUSH ASDIRECTED PRN Tranexamic Acid [Cyklokapron] 1,000 mg Sodium Chloride 0.9% [Normal Saline] 100 ml IV ONETIME Resuscitation Status Routine 12/19/17 05:08 Patient Status [ADT] Routine May Shower [RC] ASDIRECTED Up ad Benita [RC] ASDIRECTED Vaginal Exam [RC] PRN Vital Signs [RC] PER UNIT ROUTINE Peripheral IV Insertion Adult [OM.PC] Routine 12/19/17 05:15 Lactated Ringers [Ringers, Lactated] 1,000 ml IV ASDIRECTED 12/19/17 05:37 ANTICARDIOLIPIN AB, IGG, QN [REF] Routine ANTICARDIOLIPIN AB, IGM, QN [REF] Routine THYROID PEROXIDASE (TPO) AB [REF] Routine 12/19/17 12:00 Oxytocin/0.9 % Sodium Chloride [Oxytocin 30 Unit/500 ML-NS] 30 unit in 500 ml IV SEECOMMENT 12/19/17 17:43 Patient Status [ADT] Routine May Shower [RC] ASDIRECTED Up ad Benita [RC] ASDIRECTED Vital Signs [RC] PER UNIT ROUTINE Acetaminophen [Tylenol Extra Strength] 1,000 mg PO Q4H PRN Acetaminophen [Tylenol Extra Strength] 500 mg PO Q4H PRN Benzocaine/Menthol [Dermoplast Pain Relief 20%-0.5% [place]] 78 gm TOP ASDIRECTED PRN Bisacodyl [Dulcolax] 10 mg RECTAL ONETIME PRN Docusate Sodium [Colace] 100 mg PO BID PRN Ibuprofen [Motrin] 400 mg PO Q4H PRN Ibuprofen [Motrin] 800 mg PO Q6H PRN Lanolin [Lansinoh HPA] See Dose Instructions TOP ASDIRECTED PRN Witjose Maria Luz [Tucks] 1 pad TOP ASDIRECTED PRN oxyCODONE 5 mg PO Q2H PRN Assess Lochia [WOMSER] Per Unit Routine Assess Uterine Involution [WOMSER] Per Unit Routine Peripheral IV Discontinue [OM.PC] Routine 12/19/17 17:44 Ice Therapy [OM.PC] Per Unit Routine Perineal Care [OM.PC] Per Unit Routine Sitz Bath [OM.PC] Per Unit Routine 12/19/17 Dinner Regular Diet [DIET] - Assessment Assessment:: 16 week demise - Plan Plan:: Patient delivered apparent male fetus with no gross anomalies noted. Delivered in caul. Inspected placenta and cord appear intact. is with patient and they are holding infant. Questions answered. They do request chromosome analysis and autopsy of fetus. Will continue to monitor patient for bleeding. Allow epidural to wear off. If stable and would like to be discharged later, this is reasonable. Discharge instructions reviewed. Nursing at bedside with patient.
[2017-12-19] MEDS: oxyCODONE 5 MG Tab PO PRN ×2 (20:06→22:48)
[2017-12-19] MEDS: Ibuprofen 800 MG Tab PO PRN (20:07)
[2017-12-19] MEDS ORDERED: Acetaminophen/Butalbital/Caffeine 325-50-40 MG Tab PO PRN (21:22)
--- NOTE | 2017-12-19 22:05 | OR ---
SURGEON: Meghann Armstrong M.D. DATE OF PROCEDURE: 12/19/2017 PREOPERATIVE DIAGNOSIS: 16-week demise. POSTOPERATIVE DIAGNOSIS: 16-week demise. PROCEDURE: Spontaneous vaginal delivery, 16-week demise. ANESTHESIA: Epidural. ESTIMATED BLOOD LOSS: 100 mL. COMPLICATIONS: None known. FINDINGS: Approximately 16-week fetus with no gross anomalies, appears to be male. Placenta is intact with cord. Hemostasis appeared evident. DISPOSITION: The patient will remain in [facility]. Infant is with them at this time. The patient is requesting a chromosome analysis and autopsy fetus. BRIEF HISTORY: Orin is a 37-year-old female, who came for her routine OB visit yesterday to clinic. She had not noticed movement on examination, heart tones when I able to auscultate it. Ultrasound confirmed an approximately 16-week demise. There was scalloping of the head and ascites within the abdomen noted. After discussion of options, the patient would like to come in today for induction for missed . Risks of the procedure have been discussed with her. Proper consent obtained. PROCEDURE IN DETAIL: The patient was admitted, routine labs were drawn in addition to anticardiolipin antibody and thyroid levels with peroxidase antibody levels. The patient underwent a vaginal exam, cervix is closed and thick. Received Cytotec 800 mcg vaginally. Responded nicely to this, became increasingly uncomfortable in next few hours and received a second dose 6 hours later and the pain was controlled for the most part with IV Stadol and Phenergan. However, shortly afternoon, the patient did request epidural, underwent this satisfactorily and became more comfortable. Shortly after 4:00 p.m., the patient was delivered a 16-week demise en caul. Upon inspection, the placenta appeared to be intact with cord clamped x2 and cut, will be sent to pathology. The fetus was then inspected. No gross anomalies were noted. The fetus was then handed to mother and the . They are requesting chromosome analysis and autopsy. The uterus remained firm. Hemostasis appeared evident. The perineum is intact. The patient tolerated the procedure well overall. We will continue to monitor for hemostasis. All questions were answered at that time. RITA / FABIANO /[id number] [facility]
[2017-12-20] MEDS: oxyCODONE 5 MG Tab PO PRN (04:55)
[2017-12-20] MEDS: Ibuprofen 800 MG Tab PO PRN ×2 (04:56→11:04)
[2017-12-20] MEDS ORDERED: fentaNYL 100 MCG/2 ML SDV ONE (07:07)
[2017-12-20] MEDS ORDERED: Midazolam 1 MG/ML 2 ML SDV ONE (07:07)
[2017-12-20] MEDS ORDERED: Sodium Chloride 0.9% 20 ML ONE (07:19)
--- NOTE | 2017-12-20 08:26 | PCM.PNPP ---
- General Info Date of Service: 12/20/17 Subjective Update: Patient began having a refractory headache last night after shift change. Trialed oral hydration, caffeine. Did have a wet tap with epidural. Anesthesia is here adn placing a blood patch. She otherwise has been feeling well. She is ambulating, voiding, bleeding is minimal. Mood is stable. Would like to go home later. Functional Status: Reports: Tolerating Diet, Ambulating, Urinating - Review of Systems General: Denies: Fever, Weakness Pulmonary: Denies: Shortness of Breath Cardiovascular: Denies: Chest Pain, Palpitations, Lightheadedness Gastrointestinal: Denies: Abdominal Pain, Nausea, Vomiting Genitourinary: Denies: Flank Pain Neurological: Reports: Headache - General Info Date of Service: 12/20/17 - Patient Data Vital Signs - Most Recent: Last Vital Signs Temp 36.4 C 12/20/17 05:05 Pulse 56 L 12/20/17 05:05 Resp 16 12/20/17 05:05 BP 95/54 L 12/20/17 05:05 Pulse Ox Weight - Most Recent: 105.233 kg Med Orders - Current: Current Medications Acetaminophen (Tylenol Extra Strength) 500 mg PO Q4H PRN PRN Reason: Pain Acetaminophen (Tylenol Extra Strength) 1,000 mg PO Q4H PRN PRN Reason: Pain Acetaminophen/Butalbital/Caffeine (Fioricet 325-50-40 Mg) 1 tab PO Q4H PRN PRN Reason: Headache/Pain Last Admin: 12/19/17 21:47 Dose: 1 tab Benzocaine/Menthol (Dermoplast Pain Relief 20%-0.5% [place]) 78 gm TOP ASDIRECTED PRN PRN Reason: Perineal Comfort Measure Bisacodyl (Dulcolax) 10 mg RECTAL ONETIME PRN PRN Reason: Constipation Butorphanol Tartrate (Stadol) 1 mg IVPUSH Q1H PRN PRN Reason: Pain Last Admin: 12/19/17 12:38 Dose: 1 mg Carboprost Tromethamine (Hemabate Ds) 250 mcg IM ASDIRECTED PRN PRN Reason: Post Hemorrhage Docusate Sodium (Colace) 100 mg PO BID PRN PRN Reason: Constipation Emollient Ointment (Lansinoh Hpa) 0 gm TOP ASDIRECTED PRN PRN Reason: Sore Nipples Lactated Ringer's (Ringers, Lactated) 1,000 mls @ 150 mls/hr IV ASDIRECTED [facility]END[facility]ALE TO [facility] Last Admin: 12/19/17 13:35 Dose: 150 mls/hr Tranexamic Acid 1,000 mg/ (Sodium Chloride) 110 mls @ 660 mls/hr IV ONETIME PRN PRN Reason: Bleeding Oxytocin/Sodium Chloride (Oxytocin 30 Unit/500 Ml-Ns) 30 unit in 500 mls @ 999 mls/hr IV SEECOMMENT [facility]; Protocol Last Admin: 12/19/17 16:40 Dose: 999 munits/min, 999 mls/hr Ibuprofen (Motrin) 400 mg PO Q4H PRN PRN Reason: Pain Ibuprofen (Motrin) 800 mg PO Q6H PRN PRN Reason: Pain Last Admin: 12/20/17 04:56 Dose: 800 mg Methylergonovine Maleate (Methergine) 0.2 mg IM ASDIRECTED PRN PRN Reason: Post Hemorrhage Oxycodone HCl (Oxycodone) 5 mg PO Q2H PRN PRN Reason: Pain Last Admin: 12/20/17 04:55 Dose: 5 mg Sodium Chloride (Saline Flush) 10 ml FLUSH ASDIRECTED PRN PRN Reason: Keep Vein Open Sodium Chloride (Saline Flush) 2.5 ml FLUSH ASDIRECTED PRN PRN Reason: Keep Vein Open Witch Maria Luz (Tucks) 1 pad TOP ASDIRECTED PRN PRN Reason: comfort care Discontinued Medications Fentanyl (Sublimaze) Confirm Administered Dose 100 mcg .ROUTE .STK-MED ONE Stop: 12/20/17 07:08 Fentanyl/Bupivacaine HCl (Wpeywahn-Vsume-Go 2 Mcg/Ml-0.125%) Confirm Administered Dose 100 mls @ as directed EP .STK-MED ONE Stop: 12/19/17 12:47 Lidocaine HCl (Xylocaine-Mpf 1%) Confirm Administered Dose 5 mls @ as directed .ROUTE .STK-MED ONE Stop: 12/20/17 07:12 Sodium Chloride (Normal Saline) Confirm Administered Dose 20 mls @ as directed .ROUTE .STK-MED ONE Stop: 12/20/17 07:20 Lidocaine HCl (Xylocaine 1%) 50 ml INJECT ONETIME PRN PRN Reason: Laceration repair Midazolam HCl (Versed 1 Mg/Ml) Confirm Administered Dose 2 mg .ROUTE .STK-MED ONE Stop: 12/20/17 07:08 Misoprostol (Cytotec) 200 mcg PO ONETIME PRN PRN Reason: Post Hemorrhage Misoprostol (Cytotec) 800 mcg VAG Q6H [facility] Last Admin: 12/19/17 13:26 Dose: Not Given Nalbuphine HCl (Nubain) 10 mg IVPUSH Q1H PRN PRN Reason: Pain (severe 7-10) Promethazine HCl (Phenergan) 25 mg IM ONETIME ONE Stop: 12/19/17 12:38 Last Admin: 12/19/17 12:42 Dose: 25 mg Ropivacaine (Naropin 0.2%) Confirm Administered Dose 20 ml .ROUTE .STK-MED ONE Stop: 12/19/17 12:47 Sterile Water (Sterile Water For Irrigation) 1,000 ml IRR ASDIRECTED PRN PRN Reason: delivery - Recovery Exam Lochia Amount: Small Lochia Color: Rubra/Red Perineum Description: Intact, Minimal Bruising/Swelling - Exam General: Alert, Oriented Lungs: Normal Respiratory Effort Cardiovascular: Regular Rate, Regular Rhythm GI/Abdominal Exam: Normal Bowel Sounds, Soft Extremities: No: Erika's Sign Skin: Warm, Dry, Intact Psy/Mental Status: Alert, Normal Affect - Problem List & Annotations (1) Missed SNOMED Code(s): 63884332 Code(s): O02.1 - MISSED Status: Acute Current Visit: No - Problem List Review Problem List Initiated/Reviewed/Updated: Yes - My Orders Last 24 Hours: My Active Orders 12/19/17 12:00 Oxytocin/0.9 % Sodium Chloride [Oxytocin 30 Unit/500 ML-NS] 30 unit in 500 ml IV SEECOMMENT 12/19/17 17:43 Patient Status [ADT] Routine May Shower [RC] ASDIRECTED Up ad Benita [RC] ASDIRECTED Vital Signs [RC] PER UNIT ROUTINE Acetaminophen [Tylenol Extra Strength] 1,000 mg PO Q4H PRN Acetaminophen [Tylenol Extra Strength] 500 mg PO Q4H PRN Benzocaine/Menthol [Dermoplast Pain Relief 20%-0.5% [place]] 78 gm TOP ASDIRECTED PRN Bisacodyl [Dulcolax] 10 mg RECTAL ONETIME PRN Docusate Sodium [Colace] 100 mg PO BID PRN Ibuprofen [Motrin] 400 mg PO Q4H PRN Ibuprofen [Motrin] 800 mg PO Q6H PRN Lanolin [Lansinoh HPA] See Dose Instructions TOP ASDIRECTED PRN Witch Maria Luz [Tucks] 1 pad TOP ASDIRECTED PRN oxyCODONE 5 mg PO Q2H PRN Assess Lochia [WOMSER] Per Unit Routine Assess Uterine Involution [WOMSER] Per Unit Routine Peripheral IV Discontinue [OM.PC] Routine 12/19/17 17:44 Ice Therapy [OM.PC] Per Unit Routine Perineal Care [OM.PC] Per Unit Routine Sitz Bath [OM.PC] Per Unit Routine 12/19/17 Dinner Regular Diet [DIET] 12/20/17 08:22 Ready for Discharge [RC] PER UNIT ROUTINE - Assessment Assessment:: 16 week demise Status post delivery - Plan Plan:: Monitor with blood patch. Once anesthesia verifies, may allow discharge to home later today. Discharge instructions reviewed. Follow up at [facility] 2 weeks.
--- NOTE | 2017-12-20 08:48 | PCM.SN ---
- Free Text/Narrative Note: Procedure Note -- Epidural Blood Patch at bedside in rm [id number] with OB RN, and WEIGHT CONTROL LECTURER assistance. Consent obtained, procedure explained. sedated with versed and fentanyl through existing peripheral iv prior to procedure. 18G angiocath placed easily into dorsum of R hand. Would not draw back despite manip of catheter, despite spont flowback. Epidural needle placed on first attempt at L4-5 interspace after 1% lido infiltration. 11 cc blood drawn off L hand, then vein "blows". 11 cc blood injected into epidural space without radicular pain. Multiple additional attempts at drawing additional blood were unsucessful. (only 1 CC of additional blood was drawn). This 1 additional cc of blood was injected into the epidural space. Epidural needle was removed. Pt reported feeling fullness in lower back when lying down. Headache improved. Asked to stay recumbent for 45 m in. Will recheck in 1-2 hr.
--- NOTE | 2017-12-20 09:53 | PCM48HPAN ---
Post Anesthesia Note - EVALUATION WITHIN 48HRS OF ANESTHETIC Vital Signs in Normal Range: Yes Patient Participated in Evaluation: Yes Respiratory Function Stable: Yes Airway Patent: Yes Cardiovascular Function Stable: Yes Hydration Status Stable: Yes Pain Control Satisfactory: Yes Nausea and Vomiting Control Satisfactory: Yes Mental Status Recovered: Yes Resp Rate: 16 - COMMENTS/OBSERVATIONS Free Text/Narrative:: good response to EBP, pain free at this time.
[2017-12-20] MEDS: Lactated Ringers 1,000 ML IV SCH (11:33)
== END 2017-12-20 12:25 | disposition home or self-care (01) ==
LOC: MW.OBCHECK 04:59 → MW.OB 05:02 → MW.OBCHECK 05:08
PROVIDERS: ADMIT Obstetrics & Gynecology; ATTEND Obstetrics & Gynecology
DX: O02.1 Missed abortion (principal); F41.9 Anxiety disorder, unspecified; F32.9 Major depressive disorder, single episode, unspecified; Z79.899 Other long term (current) drug therapy
CPT/HCPCS: 36415; 51702; 59409; 84439; 84443; 85027; 86147; 86376; 86850; 86900; 86901; 88233; A9270; J0595; J2250; J2550; J2590; J3010; J7120

== ENCOUNTER 2017-12-23 21:48 | Emergency (ER) | payer MEDICAID ==
[2017-12-23] MEDS ORDERED: Sodium Chloride 0.9% 1,000 ML IV ONE (22:44)
--- NOTE | 2017-12-23 22:48 | EDM.PDOC ---
ED HPI GENERAL MEDICAL PROBLEM - General Chief Complaint: Headache Stated Complaint: IN ALOT OF PAIN Time Seen by Provider: 12/23/17 22:40 - History of Present Illness INITIAL COMMENTS - FREE TEXT/NARRATIVE: HISTORY AND PHYSICAL: History of present illness: Patient's a 37-year-old female was status post epidural with developed subsequent spinal headache and received a blood patch with good improvement she has had return of her symptoms in a very similar manner complaining of photophobia postural changes and was advised by anesthesia to return immediately if the symptoms recur. There's been no fever chills nausea vomiting she does have history of chronic back pain Review of systems: As per history of present illness and below otherwise all systems reviewed and negative. Past medical history: As per history of present illness and as reviewed below otherwise noncontributory. Surgical history: As per history of present illness and as reviewed below otherwise noncontributory. Social history: No reported history of drug or alcohol abuse. Family history: As per history of present illness and as reviewed below otherwise noncontributory. Physical exam: HEENT: Atraumatic, normocephalic, pupils reactive, negative for conjunctival pallor or scleral icterus, mucous membranes moist, throat clear, neck supple, nontender, trachea midline. Lungs: Clear to auscultation, breath sounds equal bilaterally, chest nontender. Heart: S1S2, regular, negative for clicks, rubs, or JVD. Abdomen: Soft, nondistended, nontender. Negative for masses or hepatosplenomegaly. Negative for costovertebral tenderness. Pelvis: Stable nontender. Genitourinary: Deferred. Rectal: Deferred. Extremities: Atraumatic, negative for cords or calf pain. Neurovascular unremarkable. Neuro: Awake, alert, oriented. Limited grossly nonfocal exam Diagnostics: None Therapeutics: Normal saline 1 L bolus Impression: #1 Cephalgia #2 history of epidural with subsequent spinal headache #3 history of blood patch 1 Definitive disposition and diagnosis as appropriate pending reevaluation and review of above. Headache Pain Score (Numeric/FACES): 8 - Related Data Allergies Allergy/AdvReac Type Severity Reaction Status Date / Time No Known Allergies Allergy Verified 07/19/17 10:56 Home Meds: Home Meds #103/Iron Fumarate/Fa [ ] 1 tab PO DAILY 07/18/17 [ History] FLUoxetine HCl [Prozac] 60 mg PO DAILY 12/19/17 [History] Past Medical History HEENT History: Reports: Hard of Hearing, Other (See Below) Other HEENT History: wears glasses, has right hearing aide Cardiovascular History: Reports: None Respiratory History: Reports: None Gastrointestinal History: Reports: None Genitourinary History: Reports: None 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: , 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 Musculoskeletal History: Reports: Back Pain, Chronic Other Musculoskeletal History: has spinal stenosis Neurological History: Reports: Concussion, Head Trauma, Migraines, Other (See Below) Other Neuro History: hx of motion sickness Psychiatric History: Reports: Anxiety, Depression Other Psychiatric History: has not taken any meds during this Endocrine/Metabolic History: Reports: Obesity/BMI 30+ Hematologic History: Reports: None Immunologic History: Reports: None Oncologic (Cancer) History: Reports: None Dermatologic History: Reports: None - Infectious Disease History Infectious Disease History: Reports: Chicken Pox - Past Surgical History HEENT Surgical History: Reports: Oral Surgery Other HEENT Surgeries/Procedures: wisdom teeth Female Surgical History: Reports: Section, D&C Social & Family History - Family History Family Medical History: Noncontributory HEENT: Reports: Cataract, Glaucoma, Hearing Impairment, Impaired Vision, Macular Degeneration Cardiac: Reports: CAD, High Cholesterol, Hypertension Respiratory: Reports: None GI: Reports: Cholelithiasis, Irritable Bowel Syndrome : Reports: None OBGYN: Reports: Musculoskeletal: Reports: Osteoarthritis Neurological: Reports: Migraines Psychiatric: Reports: ADD, ADHD, Anxiety, Autism, Depression Endocrine/Metabolic: Reports: Diabetes, type II Hematologic: Reports: None Immunologic: Reports: None Dermatologic: Reports: None Oncologic: Reports: Colon - Tobacco Use Smoking Status *Q: Former Smoker Used Tobacco, but Quit: Yes Month/Year Tobacco Last Used: 07/09 - Caffeine Use Caffeine Use: Reports: Coffee, Soda, Tea - Recreational Drug Use Recreational Drug Use: No ED ROS GENERAL - Review of Systems Review Of Systems: ROS reveals no pertinent complaints other than HPI. ED EXAM, GENERAL - Physical Exam Exam: See Below (See dictation) Course - Vital Signs Last Recorded V/S: Last Vital Signs Temp 37.1 C 12/23/17 22:38 Pulse 77 12/23/17 22:38 Resp 12 12/23/17 22:38 BP 140/77 09/01/18 22:38 Pulse Ox 98 12/23/17 22:38 - Orders/Labs/Meds Meds: Medications Discontinued Medications Generic Name Dose Route Start Last Admin Trade Name Mitesh PRN Reason Stop Dose Admin Fentanyl Confirm 12/23/17 23:05 Sublimaze Administered 12/23/17 23:06 Dose 100 mcg .ROUTE .STK-MED ONE Sodium Chloride 1,000 mls @ 999 mls/hr 12/23/17 22:44 12/23/17 22:52 Normal Saline IV 12/23/17 23:44 999 mls/hr .Bolus ONE Administration Lidocaine HCl Confirm 12/23/17 23:26 Xylocaine-Mpf 1% Administered 12/23/17 23:27 Dose 5 mls @ as directed .ROUTE .STK-MED ONE Midazolam HCl Confirm 12/23/17 23:05 Versed 1 Mg/Ml Administered 12/23/17 23:06 Dose 4 mg .ROUTE .STK-MED ONE Departure - Departure Time of Disposition: 00:26 Disposition: Home, Self-Care 01 Condition: Good Clinical Impression: Spinal headache - Discharge Information Referrals: Sahra Mckee DO [Primary Care Provider] - Forms: ED Department Discharge Additional Instructions: The following information is given to patients seen in the emergency department who are being discharged to home. This information is to outline your options for follow-up care. We provide all patients seen in our emergency department with a follow-up referral. The need for follow-up, as well as the timing and circumstances, are variable depending upon the specifics of your emergency department visit. If you don't have a primary care physician on staff, we will provide you with a referral. We always advise you to contact your personal physician following an emergency department visit to inform them of the circumstance of the visit and for follow-up with them and/or the need for any referrals to a consulting specialist. The emergency department will also refer you to a specialist when appropriate. This referral assures that you have the opportunity for followup care with a specialist. All of these measure are taken in an effort to provide you with optimal care, which includes your followup. Under all circumstances we always encourage you to contact your private physician who remains a resource for coordinating your care. When calling for followup care, please make the office aware that this follow-up is from your recent emergency room visit. If for any reason you are refused follow-up, please contact the [facility] emergency department at and asked to speak to the emergency department charge nurse. Ultram as prescribed follow-up primary medical doctor as needed as discussed and return as needed as discussed
[2017-12-23] MEDS ORDERED: fentaNYL 100 MCG/2 ML SDV ONE (23:05)
[2017-12-23] MEDS ORDERED: Midazolam 1 MG/ML 2 ML SDV ONE (23:05)
--- NOTE | 2017-12-24 | PCM.SN ---
- Free Text/Narrative Note: Procedure note. Pt known to me. Lad labor epidural placed earlier this week for delivery of a stillborn fetus. Had a wet tap and developed a postural headache about 12 hr after the epidural placement. Treated with an epidural blood patch with immediate relief. Postural headache returned about 2-3 hours ago. Also c/o exacerbation of her chronic low back pain. States previously diagnosed with lumbar spinal stenosis and diasc space narrowing. Agrees to pl; acement of a second epidural blood patch in the ED tonight. Has an iv. Sedation and analgesia provided with 100 mcg of Fentanyl and 2 mg of Versed. A 16 G angiocath was placed in the L antecubital under direct ultrasound visualization. A lidocain skin wheel was used prior to placing the angiocath. 20 ml of blood was removed ant the catheter was heplocked and secured. The patient was moved to a sitting position. Her back was disinfected with betadyne. gloves and masks were usedd. The epidural space was entered at L4-5 at a depth of 7-8 cm. No paresthesias, No blood returned, and No CSF returned. 20 ml of the patients own blood was slowly injected. No radicular sx were elicited. The patient felt some fullness in her lower back. She was repositioned in a supine position and asked to stay in that position for about [address] Burks will be asked to confront analgesia for her exacerbation of chronic low back pain. No complications. 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
== END 2017-12-24 00:40 | disposition home or self-care (01) ==
LOC: MW.ED 21:48
DX: G97.1 Other reaction to spinal and lumbar puncture (principal)
CPT/HCPCS: 62270; 96360; 96361; 99283; J2250; J3010; J7040; 99282

== ENCOUNTER 2018-08-07 17:00 | Emergency (ER) | payer MEDICAID ==
--- NOTE | 2018-08-07 17:18 | EDM.PDOC ---
ED HPI GENERAL MEDICAL PROBLEM - General Chief Complaint: General Stated Complaint: MEDICATION WITHDRAWAL Time Seen by Provider: 08/07/18 17:07 - History of Present Illness INITIAL COMMENTS - FREE TEXT/NARRATIVE: HISTORY AND PHYSICAL: History of present illness: Patient is a 38-year-old female history of depression and second trimester who recently was tapered off of her Cymbalta is concerned about possible withdrawal she states she's been emotionally labile she's had some other nonspecific symptoms and is convinced that this likely related to the withdrawal of the medication this was tapered over 3 days per her history she's had no problems with her she denies any abdominal pain vaginal bleeding or discharge. Review of systems: As per history of present illness and below otherwise all systems reviewed and negative. Past medical history: As per history of present illness and as reviewed below otherwise noncontributory. Surgical history: As per history of present illness and as reviewed below otherwise noncontributory. Social history: No reported history of drug or alcohol abuse. Family history: As per history of present illness and as reviewed below otherwise noncontributory. Physical exam: HEENT: Atraumatic, normocephalic, pupils reactive, negative for conjunctival pallor or scleral icterus, mucous membranes moist, throat clear, neck supple, nontender, trachea midline. Lungs: Clear to auscultation, breath sounds equal bilaterally, chest nontender. Heart: S1S2, regular, negative for clicks, rubs, or JVD. Abdomen: Soft, nondistended, nontender. Negative for masses or hepatosplenomegaly. Negative for costovertebral tenderness. Pelvis: Stable nontender. Genitourinary: Deferred. Rectal: Deferred. Extremities: Atraumatic, negative for cords or calf pain. Neurovascular unremarkable. Neuro: Awake, alert, oriented. Cranial nerves II through XII unremarkable. Cerebellum unremarkable. Motor and sensory unremarkable throughout. Exam nonfocal. Diagnostics: None Therapeutics: None Impression: #1 medical screening exam #2 history of depression #3 recent Cymbalta discontinuation #4 second trimester Definitive disposition and diagnosis as appropriate pending reevaluation and review of above. 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 Musculoskeletal History: Reports: Back Pain, Chronic Other Musculoskeletal History: has spinal stenosis Neurological History: Reports: Concussion, Head Trauma, Migraines, Other (See Below) Other Neuro History: hx of motion sickness Psychiatric History: Reports: Anxiety, Depression Other Psychiatric History: has not taken any meds during this Endocrine/Metabolic History: Reports: Obesity/BMI 30+ Hematologic History: Reports: None Immunologic History: Reports: None Oncologic (Cancer) History: Reports: None Dermatologic History: Reports: None - Infectious Disease History Infectious Disease History: Reports: Chicken Pox - Past Surgical History HEENT Surgical History: Reports: Oral Surgery Other HEENT Surgeries/Procedures: wisdom teeth Female Surgical History: Reports: Section, D&C Social & Family History - Family History Family Medical History: Noncontributory HEENT: Reports: Cataract, Glaucoma, Hearing Impairment, Impaired Vision, Macular Degeneration Cardiac: Reports: CAD, High Cholesterol, Hypertension Respiratory: Reports: None GI: Reports: Cholelithiasis, Irritable Bowel Syndrome : Reports: None OBGYN: Reports: Musculoskeletal: Reports: Osteoarthritis Neurological: Reports: Migraines Psychiatric: Reports: ADD, ADHD, Anxiety, Autism, Depression Endocrine/Metabolic: Reports: Diabetes, type II Hematologic: Reports: None Immunologic: Reports: None Dermatologic: Reports: None Oncologic: Reports: Colon - Tobacco Use Smoking Status *Q: Never Smoker - Caffeine Use Caffeine Use: Reports: Coffee, Soda - Recreational Drug Use Recreational Drug Use: No ED ROS GENERAL - Review of Systems Review Of Systems: ROS reveals no pertinent complaints other than HPI. ED EXAM, GENERAL - Physical Exam Exam: See Below (dictation) Course - Vital Signs Last Recorded V/S: Last Vital Signs Temp 35.8 C 08/07/18 17:09 Pulse 91 08/07/18 17:09 Resp 18 08/07/18 17:09 BP 109/61 08/07/18 17:09 Pulse Ox 97 08/07/18 17:09 Departure - Departure Time of Disposition: 17:17 Disposition: Home, Self-Care 01 Condition: Good Clinical Impression: Second trimester , History of depression, Encounter for medical screening examination - Discharge Information Referrals: Sahra Mckee DO [Primary Care Provider] - Additional Instructions: The following information is given to patients seen in the emergency department who are being discharged to home. This information is to outline your options for follow-up care. We provide all patients seen in our emergency department with a follow-up referral. The need for follow-up, as well as the timing and circumstances, are variable depending upon the specifics of your emergency department visit. If you don't have a primary care physician on staff, we will provide you with a referral. We always advise you to contact your personal physician following an emergency department visit to inform them of the circumstance of the visit and for follow-up with them and/or the need for any referrals to a consulting specialist. The emergency department will also refer you to a specialist when appropriate. This referral assures that you have the opportunity for followup care with a specialist. All of these measure are taken in an effort to provide you with optimal care, which includes your followup. Under all circumstances we always encourage you to contact your private physician who remains a resource for coordinating your care. When calling for followup care, please make the office aware that this follow-up is from your recent emergency room visit. If for any reason you are refused follow-up, please contact the [facility] emergency department at and asked to speak to the emergency department charge nurse. Follow-up GRANT WRITER and PMD as discussed return as needed as discussed
== END 2018-08-07 17:39 | disposition home or self-care (01) ==
LOC: MW.ED 17:00
DX: O99.342 Other mental disorders complicating pregnancy, second trimester (principal); F32.9 Major depressive disorder, single episode, unspecified
CPT/HCPCS: 99282

== ENCOUNTER 2018-09-16 19:44 | Observation (INO) | payer MEDICAID ==
[2018-09-16] MEDS ORDERED: Metoclopramide 10 MG/2 ML SDV IVPUSH ONE ×2 (21:25→22:30)
[2018-09-16] MEDS ORDERED: cefTRIAXone 1 GM in Sodium Chloride 0.9% 50 ML IV ONE ×2 (21:26→22:30)
[2018-09-16] MEDS ORDERED: Lactated Ringers 1,000 ML IV SCH (21:30)
[2018-09-16 22:27] LABS: CHLORIDE,CL 104 mmol/L (98-107); SODIUM,NA 139 mmol/L (136-145)
[2018-09-16] MEDS ORDERED: Ondansetron 8 MG Tab.DIS PO ONE (23:34)
[2018-09-16] MEDS ORDERED: Ondansetron 4 MG Tab.DIS ONE (23:50)
== END 2018-09-16 23:43 | disposition home or self-care (01) ==
LOC: MW.OB 19:44
PROVIDERS: ADMIT Obstetrics & Gynecology; ATTEND Obstetrics & Gynecology
DX: O21.2 Late vomiting of pregnancy (principal); O47.03 False labor before 37 completed weeks of gestation, third trimester; O09.523 Supervision of elderly multigravida, third trimester; Z3A.30 30 weeks gestation of pregnancy; Z79.899 Other long term (current) drug therapy
CPT/HCPCS: 36415; 59025; 80053; 81003; 82150; 83690; 85007; 85027; A9270; J0696; J2765; J7050; J7120

== ENCOUNTER 2018-11-14 05:38 | Inpatient (IN) | payer MEDICAID ==
[2018-11-14] MEDS ORDERED: Sodium Chloride 0.9% 2.5 ML Syringe FLUSH PRN (05:55)
[2018-11-14] MEDS ORDERED: Sodium Chloride 0.9% 10 ML SDV IV PRN (05:55)
[2018-11-14] MEDS ORDERED: ceFAZolin 2 GM in Premix Bag 1 BAG IV ONE (05:55)
[2018-11-14] MEDS ORDERED: Sodium Chloride 0.9% 10 ML Syringe FLUSH PRN (05:55)
[2018-11-14] MEDS ORDERED: Citric Acid/Sodium Citrate Solution 30 ML Cup PO ONE (05:55)
[2018-11-14] MEDS ORDERED: Oxytocin/0.9 % Sodium Chloride 30 UNIT/500 ML BAG IV SCH (06:00)
[2018-11-14] MEDS: Lactated Ringers 1,000 ML IV SCH ×4 (06:11→11:34)
--- NOTE | 2018-11-14 06:28 | PCM.PREANE ---
Preanesthetic Assessment - Anesthesia/Transfusion/Family Hx Anesthesia History: Prior Anesthesia Without Reaction (GA and MAYA with Blood patch x2) Family History of Anesthesia Reaction: No Transfusion History: No Prior Transfusion(s) Intubation History: Unknown - Review of Systems General: No Symptoms Pulmonary: No Symptoms Cardiovascular: No Symptoms Gastrointestinal: No Symptoms Neurological: No Symptoms Other: Reports: None - Physical Assessment NPO Status Date: 11/13/18 NPO Status Time: 22:00 Height: 5 ft 8.11 in Weight: 119.295 kg ASA Class: 2 Mental Status: Alert & Oriented x3 Airway Class: Mallampati = 2 Dentition: Reports: Normal Dentition Thyro-Mental Finger Breadths: 3 Mouth Opening Finger Breadths: 3 ROM/Head Extension: Full Lungs: Clear to Auscultation, Normal Respiratory Effort Cardiovascular: Regular Rate, Regular Rhythm - Allergies Allergies/Adverse Reactions: Allergies Allergy/AdvReac Type Severity Reaction Status Date / Time No Known Allergies Allergy Verified 11/12/18 08:02 - Anesthesia Plan Free Text/Narrative:: 2001 - for placental abruption - likely GETA Epidural placement in 2018 yielded wet tap; required blood patch x2 of the course of a week. 2018 - Lumbar MRI yields L1-4 unremarkable, L4-5 Tiny disc bulge without stenosis. Lumbar spine is in normal alignment. 2018 - Thoracic MRI yields multi-level disc disease. T12-L1 most significant with large paracentral disc protrusion abutting the spinal cord with mild- moderate spinal canal stenosis. - Acknowledgements Anesthesia Type Planned: General Anesthesia, Spinal (with Duramorph) Pt an Appropriate Candidate for the Planned Anesthesia: Yes Alternatives and Risks of Anesthesia Discussed w Pt/Guardian: Yes Pt/Guardian Understands and Agrees with Anesthesia Plan: Yes PreAnesthesia Questionnaire HEENT History: Reports: Hard of Hearing, Other (See Below) Other HEENT History: wears glasses, has right hearing aide Cardiovascular History: Reports: None Respiratory History: Reports: None Gastrointestinal History: Reports: GERD, Other (See Below) Other Gastrointestinal History: heartburn during Genitourinary History: Reports: None 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: , 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 : 8 Para: 5 (Previous stillborn 2018) LMP (Approximate): Musculoskeletal History: Reports: Back Pain, Chronic Neurological History: Reports: Concussion Other Neuro History: hx of motion sickness Psychiatric History: Reports: Anxiety, Depression Endocrine/Metabolic History: Reports: Diabetes, Gestational (Requiring Insulin) , Obesity/BMI 30+ Hematologic History: Reports: None Immunologic History: Reports: None Oncologic (Cancer) History: Reports: None Dermatologic History: Reports: None - Infectious Disease History Infectious Disease History: Reports: Chicken Pox - Past Surgical History Head Surgeries/Procedures: Reports: None HEENT Surgical History: Reports: Oral Surgery Other HEENT Surgeries/Procedures: wisdom teeth Cardiovascular Surgical History: Reports: None Respiratory Surgical History: Reports: None GI Surgical History: Reports: None Female Surgical History: Reports: Section (x1 2001), D&C Endocrine Surgical History: Reports: None Neurological Surgical History: Reports: None Musculoskeletal Surgical History: Reports: None Oncologic Surgical History: Reports: None Dermatological Surgical History: Reports: None - SUBSTANCE USE Smoking Status *Q: Former Smoker Tobacco Use Within Last Twelve Months: No - HOME MEDS Home Medications: Home Meds #103/Iron Fumarate/Fa [ ] 1 tab PO DAILY 07/18/17 [ History] Calcium Carbonate [Tums] 500 mg PO ASDIRECTED PRN 11/07/18 [History] DULoxetine [Cymbalta] 60 mg PO DAILY 11/07/18 [History] Insulin NPH Human Isophane [Humulin N] 1 injection SQ BID 11/07/18 [History] Insulin Regular, Human [NovoLIN R] 1 injection SQ BID 11/07/18 [History] Metoclopramide HCl [Reglan] 5 mg PO DAILY 11/07/18 [History] Aspirin [Halfprin] 81 mg PO DAILY 11/12/18 [History] Hydroxypam 25 mg PO ASDIRECTED PRN 11/12/18 [History] - CURRENT (IN HOUSE) MEDS Current Meds: Current Medications Cefazolin Sodium/Dextrose 2 gm (/ Premix) 50 mls @ 100 mls/hr IV ONETIME ONE Stop: 11/14/18 06:24 Lactated Ringer's (Ringers, Lactated) 1,000 mls @ 500 mls/hr IV BOLUS SELVIN Oxytocin/Sodium Chloride (Oxytocin 30 Unit/500 Ml-Ns) 30 unit in 500 mls @ 250 mls/hr IV TITRATE SELVIN Sodium Chloride (Saline Flush) 10 ml FLUSH ASDIRECTED PRN PRN Reason: Keep Vein Open Sodium Chloride (Saline Flush) 2.5 ml FLUSH ASDIRECTED PRN PRN Reason: Keep Vein Open Sodium Chloride (Normal Saline) 10 ml IV ASDIRECTED PRN PRN Reason: IV Use Discontinued Medications Citric Acid/Sodium Citrate (Bicitra Solution) 30 ml PO ONETIME ONE Stop: 11/14/18 05:56
[2018-11-14 06:53] LABS: CHLORIDE,CL 105 mmol/L (98-107); SODIUM,NA 137 mmol/L (136-145)
[2018-11-14] MEDS ORDERED: Oxytocin/0.9 % Sodium Chloride 30 UNIT/500 ML BAG ONE (07:23)
[2018-11-14] MEDS ORDERED: Ondansetron 4 MG/2 ML SDV ONE (07:23)
[2018-11-14] MEDS ORDERED: Morphine PF 10 MG/10 ML SDV ONE (07:28)
[2018-11-14] MEDS ORDERED: ceFAZolin/Dextrose,Iso-Osmotic 2 GM/50 ML Duplex Bag IV ONE (07:35)
[2018-11-14] MEDS ORDERED: ceFAZolin 1 GM Vial ONE ×2 (07:36→07:37)
[2018-11-14] MEDS ORDERED: Sodium Chloride 0.9% 20 ML ONE (07:38)
[2018-11-14] MEDS ORDERED: Phenylephrine/Normal Saline 100 MCG/ML 10 ML Syringe ONE (08:11)
[2018-11-14] MEDS ORDERED: ePHEDrine 50 MG/ML SDV ONE (08:21)
[2018-11-14] MEDS ORDERED: Octyl 2-Cyanoacrylate 1 Tube ONE (08:55)
[2018-11-14] MEDS ORDERED: Acetaminophen/oxyCODONE 325-5 MG Tab PO PRN ×2 (09:04→09:33)
[2018-11-14] MEDS ORDERED: Lanolin 100% Cream 7 GM Tube TOP PRN (09:04)
[2018-11-14] MEDS ORDERED: diphenhydrAMINE 50 MG/ML SDV IVPUSH PRN (09:04)
[2018-11-14] MEDS ORDERED: Aluminum Hydroxide/Magnesium Hydroxide/Simethicone Susp 30 ML Cup PO PRN (09:04)
[2018-11-14] MEDS ORDERED: Ondansetron 4 MG/2 ML SDV IVPUSH PRN (09:04)
[2018-11-14] MEDS ORDERED: Bisacodyl 10 MG Supp RECTAL PRN (09:04)
--- NOTE | 2018-11-14 09:15 | PCM.OPNOTE ---
- General Post-Op/Procedure Note Date of Surgery/Procedure: 11/14/18 Operative Procedure(s): Repeat LTCS Findings: Vaible female APGARs 8, 9 weight 7 lb 9 oz. Intact placenta with 3V cord Pre Op Diagnosis: 38 week IUP. Gestational diabetes, insulin dependent. AMA. Obesity. History of demise Post-Op Diagnosis: Same Anesthesia Technique: Spinal Primary Surgeon: Meghann Armstrong Account Development Associate: Vi Saha Fluid Replacement, Intraop: 1,000 EBL in mLs: 700 Complications: none known Condition: Good Free Text/Narrative:: Dictation [id number]
[2018-11-14] MEDS ORDERED: Nalbuphine 10 MG/1 ML Vial IVPUSH PRN (09:33)
[2018-11-14] MEDS: Ketorolac 30 MG/ML SDV IVPUSH SCH ×3 (09:45→21:36)
--- NOTE | 2018-11-14 10:12 | PCM.POSTAN ---
POST ANESTHESIA ASSESSMENT - MENTAL STATUS Mental Status: Alert, Oriented - VITAL SIGNS Pulse Rate: 80 SaO2: 98 Resp Rate: 14 Blood Pressure: 126/72 - RESPIRATORY Respiratory Status: Respiratory Rate WNL, Airway Patent, O2 Saturation Stable - CARDIOVASCULAR CV Status: Pulse Rate WNL, Blood Pressure Stable - GASTROINTESTINAL GI Status: No Symptoms - PAIN Pain Score: 0 - POST OP HYDRATION Hydration Status: Adequate & Stable
--- NOTE | 2018-11-14 10:39 | OR ---
SURGEON: Meghann Armstrong M.D. DATE OF PROCEDURE: 11/14/2018 PREOPERATIVE DIAGNOSES: 1. 38-week intrauterine . 2. Gestational diabetes, insulin dependent. 3. Advanced maternal age. 4. Obesity. 5. History of demise. POSTOPERATIVE DIAGNOSIS: 1. 38-week intrauterine . 2. Gestational diabetes, insulin dependent. 3. Advanced maternal age. 4. Obesity. 5. History of demise. PROCEDURE: Repeat low-transverse section. PRIMARY SURGEON: Meghann Armstrong MD. ENGINEER INTER[employer]HIP: Mitra Saha. ANESTHESIA: Spinal. ESTIMATED BLOOD LOSS: 700 mL. FLUIDS: 1000 mL of crystalloid in OR. FINDINGS: Viable female. scores at 8 at 1 minute and 9 at 5 minutes. Weight of 7 pounds 9 ounces. Delivery of intact placenta, 3-vessel cord. DISPOSITION: Infant to nursery, mom to PACU in stable condition. PROCEDURE DETAILS: Orin is a 38-year-old female, who presents this morning for scheduled repeat delivery. Risks of procedure have been discussed. Proper consent obtained. The patient was taken to the operating room where she underwent a spinal anesthetic, was then placed in dorsal supine position with a leftward tilt. SCDs to lower extremities. Flores to gravity. Was prepped and draped in the usual sterile fashion. Did receive Ancef prophylactically. Time-out was performed. Anesthesia was tested, found to be adequate. Previous Pfannenstiel scar was now excised. Subcutaneous tissue was incised down to the level of the rectus fascia which was incised in midline. The fascia was now dissected sharply and bluntly laterally on either side. The superior aspect of the fascia was tented upward, dissected sharply and bluntly away from underlying muscles. Similar aspect performed at the inferior aspect of fascia. Rectus muscles were now gently in the midline bluntly and sharply. Peritoneum was entered. Rectus muscle and peritoneum were now lateralized bluntly. Uterine position and position palpated. Self-retaining retractor gently placed. The bladder flap was created and mobilized bladder away from the lower uterine segment. Low transverse hysterotomy was now performed. Uterine cavity was entered with the blunt end of the scalpel. Amniotomy was performed. Clear fluid was returned and the hysterotomy was lateralized bluntly. The infant's head was flexed and delivered from the pelvis. The fundal pressure was applied. The 's head was delivered followed by anterior shoulder, posterior shoulder, and remaining body without difficulty. The 's oropharynx and nares were bulb suctioned. After a delay, cord was clamped x2 and cut. was handed off to attending nursing staff. Cord arterial, cord venous, and cord blood sampling obtained. The placenta was now delivered. Uterine cavity was cleared of all clot and debris. Hysterotomy was repaired using 0 Vicryl in continuous running locked fashion followed by re-imbricating layer. The posterior aspect of the uterus was inspected. No defects or hematomas were found be forming. Region was well irrigated, suction dried. Uterus returned to the abdominal cavity. Colonic gutters were cleared of all clot and debris. Hysterotomy was again inspected and found to be hemostatic. Self-retaining retractor now gently removed. Hysterotomy once again inspected and found to be hemostatic. Rectus muscle and peritoneum were now reapproximated using 0 Vicryl with the inverted mattress suture technique. Anterior aspect of the muscle and posterior aspect of the fascia were closely inspected. Any areas of bleeding or oozing were cauterized. The rectus fascia was now reapproximated using 0 Vicryl in continuous running fashion beginning laterally on either side and meeting in the midline. Subcutaneous tissue was well irrigated, suction dried. Any areas of oozing cauterized. Deep subcutaneous tissues were reapproximated with 3-0 plain in continuous running fashion. Incision once again copiously irrigated and skin edges were reapproximated using 3-0 Vicryl on a Philippe needle in a subcuticular fashion followed by Dermabond. Uterus remained firm. Sponge, instrument, and needle count was correct x2. The patient has tolerated the procedure well. She will go to PACU in stable condition. RITA / FABIANO /[id number]
[2018-11-14] MEDS: Simethicone 80 MG Tab.Chew PO SCH ×2 (13:26→19:00)
[2018-11-14] MEDS: Docusate Sodium 100 MG Cap PO SCH (21:36)
[2018-11-15] MEDS ORDERED: Acetaminophen/oxyCODONE 325-5 MG Tab PO PRN (00:22)
[2018-11-15] MEDS: Simethicone 80 MG Tab.Chew PO SCH ×4 (00:51→18:53)
[2018-11-15] MEDS: Lactated Ringers 1,000 ML IV SCH (01:51)
[2018-11-15] MEDS: Ketorolac 30 MG/ML SDV IVPUSH SCH ×2 (03:15→09:21)
--- NOTE | 2018-11-15 08:30 | PCM.PNPP ---
- General Info Date of Service: 11/15/18 Functional Status: Reports: Pain Controlled, Tolerating Diet, Ambulating, Urinating - Review of Systems General: Denies: Fever, Weakness, Fatigue Pulmonary: Denies: Shortness of Breath Cardiovascular: Denies: Chest Pain, Palpitations, Lightheadedness Gastrointestinal: Reports: Abdominal Pain (incisional, controlled overall with meds) Genitourinary: Reports: No Symptoms Musculoskeletal: Reports: No Symptoms Skin: Reports: No Symptoms Neurological: Reports: No Symptoms Psychiatric: Reports: No Symptoms - General Info Date of Service: 11/15/18 - Patient Data Vital Signs - Most Recent: Last Vital Signs Temp 36.6 C 11/15/18 07:15 Pulse 87 11/15/18 07:15 Resp 17 11/15/18 07:15 BP 95/50 L 11/15/18 07:15 Pulse Ox 97 11/15/18 07:15 Weight - Most Recent: 119.295 kg I&O - Last 24 Hours: Intake & Output 11/14/18 11/15/18 11/15/18 22:59 06:59 14:59 Intake Total 1678 2300 Output Total 150 1305 Balance 1528 995 Lab Results - Last 24 Hours: Laboratory Results - last 24 hr 11/14/18 11/14/18 11/14/18 Range/Units 08:23 09:36 17:59 Hgb (12.0-16.0) g/dL Hct (36.0-46.0) % Cord ABG pH 7.273 (7.18-7.38) Cord ABG Base Excess -4 (-10--2) Cord VBG pH 7.295 (7.25-7.45) Cord VBG Base Excess -4 (-10--2) POC Glucose 75 109 (60-110) mg/dL 11/14/18 11/15/18 Range/Units 23:50 06:10 Hgb 9.7 L (12.0-16.0) g/dL Hct 30.6 L (36.0-46.0) % Cord ABG pH (7.18-7.38) Cord ABG Base Excess (-10--2) Cord VBG pH (7.25-7.45) Cord VBG Base Excess (-10--2) POC Glucose 106 (60-110) mg/dL Med Orders - Current: Current Medications Al Hydroxide/Mg Hydroxide (Mag-Al Plus) 30 ml PO Q8H PRN PRN Reason: Heartburn Bisacodyl (Dulcolax) 10 mg RECTAL ONETIME PRN PRN Reason: Constipation Diphenhydramine HCl (Benadryl) 25 mg IVPUSH Q6H PRN PRN Reason: Itching or Nausea Docusate Sodium (Colace) 100 mg PO BID [facility] Last Admin: 11/14/18 21:36 Dose: 100 mg Emollient Ointment (Lansinoh Hpa) 0 gm TOP ASDIRECTED PRN PRN Reason: Sore Nipples Lactated Ringer's (Ringers, Lactated) 1,000 mls @ 500 mls/hr IV BOLUS [facility] Last Admin: 11/14/18 07:47 Dose: 500 mls/hr Oxytocin/Sodium Chloride (Oxytocin 30 Unit/500 Ml-Ns) 30 unit in 500 mls @ 250 mls/hr IV TITRATE [facility] Lactated Ringer's (Ringers, Lactated) 1,000 mls @ 125 mls/hr IV ASDIRECTED [facility] Last Admin: 11/15/18 01:51 Dose: 125 mls/hr Ibuprofen (Motrin) 800 mg PO Q8H PRN PRN Reason: mild pain or fever Ketorolac Tromethamine (Toradol) 30 mg IVPUSH Q6H [facility] Stop: 11/15/18 09:16 Last Admin: 11/15/18 03:15 Dose: 30 mg Nalbuphine HCl (Nubain) 2.5 mg IVPUSH Q3H PRN PRN Reason: Pruritis Stop: 11/15/18 09:36 Ondansetron HCl (Zofran) 4 mg IVPUSH Q4H PRN PRN Reason: Nausea/Vomiting Oxycodone/Acetaminophen (Percocet 325-5 Mg) 1 tab PO Q4H PRN PRN Reason: Pain (moderate 4-6) Oxycodone/Acetaminophen (Percocet 325-5 Mg) 2 tab PO Q4H PRN PRN Reason: Pain (moderate 4-6) Oxycodone/Acetaminophen (Percocet 325-5 Mg) 1 tab PO ONETIME PRN PRN Reason: Pain (moderate 4-6) Oxycodone/Acetaminophen (Percocet 325-5 Mg) 1 tab PO Q4H PRN PRN Reason: Breakthrough Pain Last Admin: 11/15/18 00:52 Dose: 1 tab Simethicone (Simethicone) 160 mg PO QID [facility] Last Admin: 11/15/18 06:07 Dose: 160 mg Sodium Chloride (Saline Flush) 10 ml FLUSH ASDIRECTED PRN PRN Reason: Keep Vein Open Sodium Chloride (Saline Flush) 2.5 ml FLUSH ASDIRECTED PRN PRN Reason: Keep Vein Open Sodium Chloride (Normal Saline) 10 ml IV ASDIRECTED PRN PRN Reason: IV Use Discontinued Medications Cefazolin Sodium (Ancef) Confirm Administered Dose 1 gm .ROUTE .STK-MED ONE Stop: 11/14/18 07:37 Cefazolin Sodium (Ancef) Confirm Administered Dose 1 gm .ROUTE .STK-MED ONE Stop: 11/14/18 07:38 Cefazolin Sodium/Dextrose (Ancef) Confirm Administered Dose 2 gm IV .STK-MED ONE Stop: 11/14/18 07:36 Citric Acid/Sodium Citrate (Bicitra Solution) 30 ml PO ONETIME ONE Stop: 11/14/18 05:56 Last Admin: 11/14/18 07:43 Dose: 30 ml Ephedrine Sulfate (Ephedrine Sulfate) Confirm Administered Dose 50 mg .ROUTE .STK-MED ONE Stop: 11/14/18 08:22 Cefazolin Sodium/Dextrose 2 gm (/ Premix) 50 mls @ 100 mls/hr IV ONETIME ONE Stop: 11/14/18 06:24 Last Admin: 11/14/18 11:45 Dose: Not Given Oxytocin/Sodium Chloride (Oxytocin 30 Unit/500 Ml-Ns) Confirm Administered Dose 30 unit in 500 mls @ as directed .ROUTE .STK-MED ONE Stop: 11/14/18 07:24 Sodium Chloride (Normal Saline) Confirm Administered Dose 20 mls @ as directed .ROUTE .STK-MED ONE Stop: 11/14/18 07:39 Morphine Sulfate (Duramorph Pf) Confirm Administered Dose 10 mg .ROUTE .STK-MED ONE Stop: 11/14/18 07:29 Octyl Cyanoacrylate (Dermabond Advance) Confirm Administered Dose 1 applic .ROUTE .STK-MED ONE Stop: 11/14/18 08:56 Ondansetron HCl (Zofran) Confirm Administered Dose 4 mg .ROUTE .STK-MED ONE Stop: 11/14/18 07:24 Phenylephrine HCl (Phenylephrine In Ns 100 Mcg/Ml) Confirm Administered Dose 1 mg .ROUTE .STK-MED ONE Stop: 11/14/18 08:12 - Interaction Support Person: Significant Other - Recovery Exam Fundal Tone: Firm Fundal Level: 2 Fingerbreadths Below Umbilicus Fundal Placement: Midline Lochia Amount: Scant Lochia Color: Rubra/Red Perineum Description: Intact, Minimal Bruising/Swelling Episiotomy/Laceration: None Bladder Status: Voiding Urinary Elimination: Indwelling Catheter - Exam General: Alert, Oriented Lungs: Normal Respiratory Effort Cardiovascular: Regular Rate, Regular Rhythm GI/Abdominal Exam: Normal Bowel Sounds, Soft, Tender (appropriately near incision) Extremities: Pedal Edema (1+). No: Erika's Sign Skin: Warm, Dry, Intact Wound/Incisions: Dressing Dry and Intact Neurological: No New Focal Deficit Psy/Mental Status: Alert, Normal Affect, Normal Mood - Problem List & Annotations (1) Previous section SNOMED Code(s): 887413838 Code(s): Z98.891 - HISTORY OF UTERINE SCAR FROM PREVIOUS SURGERY Status: Acute Current Visit: Yes (2) Gestational diabetes SNOMED Code(s): 97421342 Code(s): O24.419 - GESTATIONAL DIABETES MELLITUS IN , UNSP CONTROL Status: Acute Current Visit: Yes Qualifiers: Gestational diabetes mellitus control: insulin-controlled - Problem List Review Problem List Initiated/Reviewed/Updated: Yes - My Orders Last 24 Hours: My Active Orders 11/14/18 09:04 Patient Status [ADT] Routine Ambulate [RC] PER UNIT ROUTINE Communication Order [RC] PER UNIT ROUTINE Communication Order [RC] PER UNIT ROUTINE Communication Order [RC] Per Unit Routine May Shower [RC] ASDIRECTED Notify Provider Intake and Out [RC] ASDIRECTED Notify Provider Vital Signs [RC] ASDIRECTED RT Incentive Spirometry [RC] Q2HWA Vital Signs [RC] PER UNIT ROUTINE Acetaminophen/oxyCODONE [Percocet 325-5 MG] 1 tab PO Q4H PRN Acetaminophen/oxyCODONE [Percocet 325-5 MG] 2 tab PO Q4H PRN Alum Hydrox/Mag Hydrox/Simeth [Mag-Al Plus] 30 ml PO Q8H PRN Bisacodyl [Dulcolax] 10 mg RECTAL ONETIME PRN Ibuprofen [Motrin] 800 mg PO Q8H PRN Lanolin [Lansinoh HPA] See Dose Instructions TOP ASDIRECTED PRN Ondansetron [Zofran] 4 mg IVPUSH Q4H PRN diphenhydrAMINE [Benadryl] 25 mg IVPUSH Q6H PRN Abdominal Binder [OM.PC] Routine Assess Lochia [WOMSER] Per Unit Routine Assess Uterine Involution [WOMSER] Per Unit Routine Breast Pump [WOMSER] Per Unit Routine Heat Therapy [OM.PC] Routine Ice Therapy [OM.PC] Routine Peripheral IV Discontinue [OM.PC] Routine Sequential Compression Device [OM.PC] Per Unit Routine 11/14/18 09:05 Antiembolic Devices [RC] PER UNIT ROUTINE 11/14/18 09:06 Blood Glucose Check, Bedside [RC] QIDACANDBED 11/14/18 09:15 Ketorolac [Toradol] 30 mg IVPUSH Q6H Lactated Ringers [Ringers, Lactated] 1,000 ml IV ASDIRECTED 11/14/18 12:00 Simethicone 160 mg PO QID 11/14/18 21:00 Docusate Sodium [Colace] 100 mg PO BID 11/14/18 Lunch Regular Diet [DIET] - Assessment Assessment:: POD 1 status post repeat LTCS Gestational diabetes--glucoses normal range - Plan Plan:: Continue cares--encourage ambulation, work with . Glucoses have been normal range thus far. If remains stable, anticiipate discharge in the morning
--- NOTE | 2018-11-15 08:32 | PCM48HPAN ---
Post Anesthesia Note - EVALUATION WITHIN 48HRS OF ANESTHETIC Vital Signs in Normal Range: Yes Patient Participated in Evaluation: Yes Respiratory Function Stable: Yes Airway Patent: Yes Cardiovascular Function Stable: Yes Hydration Status Stable: Yes Pain Control Satisfactory: Yes Nausea and Vomiting Control Satisfactory: Yes Mental Status Recovered: Yes Pulse Rate: 87 SaO2: 97 Resp Rate: 17 Blood Pressure: 95/50
[2018-11-15] MEDS: Docusate Sodium 100 MG Cap PO SCH ×2 (09:20→21:49)
[2018-11-15] MEDS: Acetaminophen/oxyCODONE 325-5 MG Tab PO PRN ×2 (15:19→21:48)
[2018-11-15] MEDS: Ibuprofen 800 MG Tab PO PRN (18:45)
[2018-11-16] MEDS: Simethicone 80 MG Tab.Chew PO SCH ×3 (01:34→12:32)
[2018-11-16] MEDS: Acetaminophen/oxyCODONE 325-5 MG Tab PO PRN ×2 (01:38→09:30)
[2018-11-16] MEDS: Ibuprofen 800 MG Tab PO PRN (06:11)
--- NOTE | 2018-11-16 08:34 | PCM.PNPP ---
- General Info Date of Service: 11/16/18 Functional Status: Reports: Pain Controlled, Tolerating Diet, Ambulating, Urinating - Review of Systems General: Denies: Fever, Weakness, Fatigue Pulmonary: Denies: Shortness of Breath Cardiovascular: Denies: Chest Pain, Palpitations, Lightheadedness Gastrointestinal: Reports: Flatus. Denies: Nausea, Vomiting Genitourinary: Denies: Flank Pain Musculoskeletal: Reports: No Symptoms Skin: Reports: No Symptoms Neurological: Reports: No Symptoms Psychiatric: Reports: No Symptoms - General Info Date of Service: 11/16/18 - Patient Data Vital Signs - Most Recent: Last Vital Signs Temp 36.4 C 11/16/18 07:32 Pulse 97 11/16/18 07:32 Resp 18 11/16/18 07:32 BP 119/68 11/16/18 07:32 Pulse Ox 95 11/16/18 07:32 Weight - Most Recent: 119.295 kg Lab Results - Last 24 Hours: Laboratory Results - last 24 hr 11/15/18 11/15/18 11/15/18 Range/Units 07:01 13:07 18:38 POC Glucose 88 108 120 H (60-110) mg/dL 11/15/18 11/16/18 Range/Units 19:52 06:33 POC Glucose 174 H 113 H (60-110) mg/dL Med Orders - Current: Current Medications Al Hydroxide/Mg Hydroxide (Mag-Al Plus) 30 ml PO Q8H PRN PRN Reason: Heartburn Bisacodyl (Dulcolax) 10 mg RECTAL ONETIME PRN PRN Reason: Constipation Diphenhydramine HCl (Benadryl) 25 mg IVPUSH Q6H PRN PRN Reason: Itching or Nausea Docusate Sodium (Colace) 100 mg PO BID [facility] Last Admin: 11/15/18 21:49 Dose: 100 mg Emollient Ointment (Lansinoh Hpa) 0 gm TOP ASDIRECTED PRN PRN Reason: Sore Nipples Lactated Ringer's (Ringers, Lactated) 1,000 mls @ 500 mls/hr IV BOLUS [facility] Last Admin: 11/14/18 07:47 Dose: 500 mls/hr Oxytocin/Sodium Chloride (Oxytocin 30 Unit/500 Ml-Ns) 30 unit in 500 mls @ 250 mls/hr IV TITRATE [facility] Lactated Ringer's (Ringers, Lactated) 1,000 mls @ 125 mls/hr IV ASDIRECTED [facility] Last Admin: 11/15/18 01:51 Dose: 125 mls/hr Ibuprofen (Motrin) 800 mg PO Q8H PRN PRN Reason: mild pain or fever Last Admin: 11/16/18 06:11 Dose: 800 mg Ondansetron HCl (Zofran) 4 mg IVPUSH Q4H PRN PRN Reason: Nausea/Vomiting Oxycodone/Acetaminophen (Percocet 325-5 Mg) 1 tab PO Q4H PRN PRN Reason: Pain (moderate 4-6) Oxycodone/Acetaminophen (Percocet 325-5 Mg) 2 tab PO Q4H PRN PRN Reason: Pain (moderate 4-6) Last Admin: 11/16/18 01:38 Dose: 2 tab Oxycodone/Acetaminophen (Percocet 325-5 Mg) 1 tab PO ONETIME PRN PRN Reason: Pain (moderate 4-6) Oxycodone/Acetaminophen (Percocet 325-5 Mg) 1 tab PO Q4H PRN PRN Reason: Breakthrough Pain Last Admin: 11/15/18 00:52 Dose: 1 tab Simethicone (Simethicone) 160 mg PO QID [facility] Last Admin: 11/16/18 06:11 Dose: 160 mg Sodium Chloride (Saline Flush) 10 ml FLUSH ASDIRECTED PRN PRN Reason: Keep Vein Open Sodium Chloride (Saline Flush) 2.5 ml FLUSH ASDIRECTED PRN PRN Reason: Keep Vein Open Sodium Chloride (Normal Saline) 10 ml IV ASDIRECTED PRN PRN Reason: IV Use Discontinued Medications Cefazolin Sodium (Ancef) Confirm Administered Dose 1 gm .ROUTE .STK-MED ONE Stop: 11/14/18 07:37 Cefazolin Sodium (Ancef) Confirm Administered Dose 1 gm .ROUTE .STK-MED ONE Stop: 11/14/18 07:38 Cefazolin Sodium/Dextrose (Ancef) Confirm Administered Dose 2 gm IV .STK-MED ONE Stop: 11/14/18 07:36 Citric Acid/Sodium Citrate (Bicitra Solution) 30 ml PO ONETIME ONE Stop: 11/14/18 05:56 Last Admin: 11/14/18 07:43 Dose: 30 ml Ephedrine Sulfate (Ephedrine Sulfate) Confirm Administered Dose 50 mg .ROUTE .STK-MED ONE Stop: 11/14/18 08:22 Cefazolin Sodium/Dextrose 2 gm (/ Premix) 50 mls @ 100 mls/hr IV ONETIME ONE Stop: 11/14/18 06:24 Last Admin: 11/14/18 11:45 Dose: Not Given Oxytocin/Sodium Chloride (Oxytocin 30 Unit/500 Ml-Ns) Confirm Administered Dose 30 unit in 500 mls @ as directed .ROUTE .STK-MED ONE Stop: 11/14/18 07:24 Sodium Chloride (Normal Saline) Confirm Administered Dose 20 mls @ as directed .ROUTE .STK-MED ONE Stop: 11/14/18 07:39 Ketorolac Tromethamine (Toradol) 30 mg IVPUSH Q6H [facility] Stop: 11/15/18 09:16 Last Admin: 11/15/18 09:21 Dose: 30 mg Morphine Sulfate (Duramorph Pf) Confirm Administered Dose 10 mg .ROUTE .STK-MED ONE Stop: 11/14/18 07:29 Nalbuphine HCl (Nubain) 2.5 mg IVPUSH Q3H PRN PRN Reason: Pruritis Stop: 11/15/18 09:36 Octyl Cyanoacrylate (Dermabond Advance) Confirm Administered Dose 1 applic .ROUTE .STK-MED ONE Stop: 11/14/18 08:56 Ondansetron HCl (Zofran) Confirm Administered Dose 4 mg .ROUTE .STK-MED ONE Stop: 11/14/18 07:24 Phenylephrine HCl (Phenylephrine In Ns 100 Mcg/Ml) Confirm Administered Dose 1 mg .ROUTE .STK-MED ONE Stop: 11/14/18 08:12 - Interaction Infant Disposition, : in Room with Family Infant Feeding: Breastfed Infant; Nursed Well Support Person: Significant Other - Recovery Exam Fundal Tone: Firm Fundal Level: 2 Fingerbreadths Below Umbilicus Fundal Placement: Right Lochia Amount: Small Lochia Color: Rubra/Red Perineum Description: Intact, Minimal Bruising/Swelling Episiotomy/Laceration: None Bladder Status: Voiding Urinary Elimination: Voided - Exam General: Alert, Oriented Lungs: Normal Respiratory Effort Cardiovascular: Regular Rate, Regular Rhythm GI/Abdominal Exam: Normal Bowel Sounds, Soft Extremities: Pedal Edema (1+). No: Erika's Sign Skin: Warm, Dry, Intact Wound/Incisions: Healing Well, No Drainage. No: Erythema Neurological: No New Focal Deficit Psy/Mental Status: Alert, Normal Affect, Normal Mood - Problem List & Annotations (1) Previous section SNOMED Code(s): 170257800 Code(s): Z98.891 - HISTORY OF UTERINE SCAR FROM PREVIOUS SURGERY Status: Acute Current Visit: Yes (2) Gestational diabetes SNOMED Code(s): 51154191 Code(s): O24.419 - GESTATIONAL DIABETES MELLITUS IN , UNSP CONTROL Status: Acute Current Visit: Yes Qualifiers: Gestational diabetes mellitus control: insulin-controlled - Problem List Review Problem List Initiated/Reviewed/Updated: Yes - My Orders Last 24 Hours: My Active Orders 11/16/18 08:30 Ready for Discharge [RC] PER UNIT ROUTINE - Assessment Assessment:: POD 2 status post repeat LTCS Gestational diabetes - Plan Plan:: Doing well overall. Glucoses normal range except for one at 174. VS are stable. Would like to go home today. Discharge instructions reviewed. Follow up at [facility] 2 and 6 weeks. Discharge to home today. Will continue to monitor glucoses and call if consistently greater than 130. Infection and bleeding warnings reviewed. Resume cymbalta for mood disorder.
[2018-11-16] MEDS: Docusate Sodium 100 MG Cap PO SCH (09:22)
== END 2018-11-16 13:41 | disposition home or self-care (01) | DRG 788 ==
LOC: MW.OB 05:38
PROVIDERS: ADMIT Obstetrics & Gynecology; ATTEND Obstetrics & Gynecology
PROC: 10D00Z1 Extraction of Products of Conception, Low, Open Approach (ICD-10-PCS; principal; 2018-11-14)
DX: O34.211 Maternal care for low transverse scar from previous cesarean delivery (principal); O24.424 Gestational diabetes mellitus in childbirth, insulin controlled; E66.9 Obesity, unspecified; O99.214 Obesity complicating childbirth; F41.9 Anxiety disorder, unspecified; F32.9 Major depressive disorder, single episode, unspecified; O99.344 Other mental disorders complicating childbirth; Z3A.38 38 weeks gestation of pregnancy; Z37.0 Single live birth
CPT/HCPCS: 36415; 59025; 80048; 82803; 82962; 85014; 85018; 85027; 86850; 86900; 86901; 88307; A9270-GY; J0690; J1885; J2270; J2370; J2405; J2590; J7120

== ENCOUNTER 2019-10-21 18:08 | Emergency (ER) | payer MEDICAID ==
[2019-10-21] MEDS ORDERED: Sodium Chloride 0.9% 1,000 ML IV ONE (18:30)
--- NOTE | 2019-10-21 18:32 | EDM.PDOC ---
ED HPI GENERAL MEDICAL PROBLEM - General Chief Complaint: Abdominal Pain Stated Complaint: ABDOMINAL PAIN Time Seen by Provider: 10/21/19 18:29 Source of Information: Reports: Patient History Limitations: Reports: No Limitations - History of Present Illness INITIAL COMMENTS - FREE TEXT/NARRATIVE: HISTORY AND PHYSICAL: History of present illness: Patient is a 39-year-old female who presents to the emergency room with complaints of right upper quadrant pain that radiates into her back. She states the pain has been ongoing for approximately 1 week. Today after eating she sta sagar the pain had flared up and caused more pain than usual and "I just wanted to come and get checked out". She has had a few episodes of nausea and diarrhea associated with the pain. Patient denies any fever, chills, headache, change in vision, syncope or near syncope. Denies any chest pain, back pain, shortness of breath or cough. Denies any vomiting, constipation or dysuria. Has not noted any blood in urine or stool. Patient has been drinking appropriately, but has been avoiding eating as this causes increased pain. Review of systems: As per history of present illness and below otherwise all systems reviewed and negative. Past medical history: As per history of present illness and as reviewed below otherwise noncontributory. Surgical history: As per history of present illness and as reviewed below otherwise noncontributory. Social history: See social history for further information Family history: As per history of present illness and as reviewed below otherwise noncontr ibutory. Physical exam: General: Well-developed and well-nourished 39-year-old female. Alert and oriented. Nontoxic-appearing and in no acute distress. HEENT: Atraumatic, normocephalic, pupils equal and reactive bilaterally, negative for conjunctival pallor or scleral icterus, mucous membranes moist, TMs normal bilaterally, throat clear, neck supple, nontender, trachea midline. No drooling or trismus noted. No meningeal signs. No hot potato voice noted. Lungs: Clear to auscultation, breath sounds equal bilaterally, chest nontender. Heart: S1S2, regular rate and rhythm without overt murmur Abdomen: Soft, nondistended, RUQ tenderness. + harrison's sign. Negative for masses or hepatosplenomegaly. Negative for costovertebral tenderness. Pelvis: Stable nontender. Skin: Intact, warm, dry. No lesions or rashes noted. Extremities: Atraumatic, moves all extremities per self without difficulty or deficits, negative for cords or calf pain. Neurovascular unremarkable. Neuro: Awake, alert, oriented. Cranial nerves II through XII unremarkable. Cerebellum unremarkable. Motor and sensory unremarkable throughout. Exam nonfocal. Notes: EKG shows normal sinus rhythm with rate of 82. NO ST elevation. Lab work is unremarkable with the exception of a urinary tract infection. Ultrasound shows mild dilatation of the common bile duct. No gallstones are identified. No sludge noted, normal wall thickening. I did discuss all findings with the patient and recommended she make an appointment with the general surgeon. She already takes oxycodone for chronic back pain, informed her I would not be able to prescribe anything stronger. Signs and symptoms that would prompt her to return to the emergency room were reviewed and discussed. Follow-up, medication and supportive care measures were reviewed and discussed. Voices understanding and is agreeable to plan of care. Denies any further questions or concerns at this time. Diagnostics: CBC, CMP, UA, hCG U, lipase, troponin, EKG Therapeutics: IV fluid, morphine, Macrobid Prescription: Macrobid Impression: UTI Abdominal pain Plan: 1. [place] diet over the next 24 to 48 hours. May want to keep a food journal for the general surgeon for follow-up. 2. Tylenol and/or ibuprofen as needed for pain management. 3. Please call tomorrow to set up a follow-up appointment with the general surgeon for reevaluation and further management. Return to the ED as needed and as discussed. Definitive disposition and diagnosis as appropriate pending reevaluation and review of above. Right Upper Abdomen Pain Score (Numeric/FACES): 10 - Related Data Allergies Allergy/AdvReac Type Severity Reaction Status Date / Time No Known Allergies Allergy Verified 10/21/19 18:13 Home Meds: Home Meds DULoxetine [Cymbalta] 60 mg PO DAILY 11/07/18 [History] Fluconazole [Diflucan] 50 mg PO DAILY 10/21/19 [History] Pregabalin [Lyrica] 25 mg PO TID 10/21/19 [History] oxyCODONE HCl/Acetaminophen [Percocet 10-325 mg Tablet] 1 each PO ASDIRECTED PRN 10/21/19 [History] Past Medical History HEENT History: Reports: Hard of Hearing, Other (See Below) Other HEENT History: wears glasses, has right hearing aide Cardiovascular History: Reports: None Respiratory History: Reports: None Gastrointestinal History: Reports: GERD, Other (See Below) Other Gastrointestinal History: heartburn during Genitourinary History: Reports: None 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 History: Reports: , Spontaneous Musculoskeletal History: Reports: Back Pain, Chronic Neurological History: Reports: Concussion Other Neuro History: hx of motion sickness Psychiatric History: Reports: Anxiety, Depression Endocrine/Metabolic History: Reports: Diabetes, Gestational, Obesity/BMI 30+ Hematologic History: Reports: None Immunologic History: Reports: None Oncologic (Cancer) History: Reports: None Dermatologic History: Reports: None - Infectious Disease History Infectious Disease History: Reports: None - Past Surgical History Head Surgeries/Procedures: Reports: None HEENT Surgical History: Reports: Oral Surgery Other HEENT Surgeries/Procedures: wisdom teeth Cardiovascular Surgical History: Reports: None Respiratory Surgical History: Reports: None GI Surgical History: Reports: None Female Surgical History: Reports: Section, D&C Endocrine Surgical History: Reports: None Neurological Surgical History: Reports: None Musculoskeletal Surgical History: Reports: None Oncologic Surgical History: Reports: None Dermatological Surgical History: Reports: None Social & Family History - Family History Family Medical History: Noncontributory HEENT: Reports: Cataract, Glaucoma, Hearing Impairment, Impaired Vision, Macular Degeneration Cardiac: Reports: CAD, High Cholesterol, Hypertension Respiratory: Reports: None GI: Reports: Cholelithiasis, Irritable Bowel Syndrome : Reports: None OBGYN: Reports: Musculoskeletal: Reports: Osteoarthritis Neurological: Reports: Migraines Psychiatric: Reports: ADD, ADHD, Anxiety, Autism, Depression Endocrine/Metabolic: Reports: Diabetes, type II Hematologic: Reports: None Immunologic: Reports: None Dermatologic: Reports: None Oncologic: Reports: Colon - Tobacco Use Smoking Status *Q: Never Smoker Second Hand Smoke Exposure: No - Caffeine Use Caffeine Use: Reports: Coffee, Soda Caffeine Use Comment: ocassionally - Recreational Drug Use Recreational Drug Use: No ED ROS GENERAL - Review of Systems Review Of Systems: Comprehensive ROS is negative, except as noted in HPI. ED EXAM, GI/ABD - Physical Exam Exam: See Below (See dictation) Course - Vital Signs Last Recorded V/S: Last Vital Signs Temp 97.6 F 10/21/19 18:16 Pulse 81 10/21/19 19:45 Resp 18 10/21/19 19:45 BP 140/62 10/21/19 19:45 Pulse Ox 95 10/21/19 19:45 - Orders/Labs/Meds Orders: Active Orders 24 hr Category Date Time Status EKG Documentation Completion [RC] STAT Care 10/21/19 18:30 Active CULTURE URINE [RM] Stat Lab 10/21/19 19:00 Received Nitrofurantoin [place]/Macrocryst [Macrobid] Med 10/21/19 20:42 Once 100 mg PO ONETIME ONE Labs: Laboratory Tests 10/21/19 10/21/19 10/21/19 Range/Units 18:45 18:45 19:00 WBC 10.75 (4.0-11.0) K/uL RBC 4.69 (4.30-5.90) M/uL Hgb 14.1 (12.0-16.0) g/dL Hct 42.3 (36.0-46.0) % MCV 90.2 (80.0-98.0) fL MCH 30.1 (27.0-32.0) pg MCHC 33.3 (31.0-37.0) g/dL RDW Std Deviation 43.0 (28.0-62.0) fl RDW Coeff of Sadiq 13 (11.0-15.0) % Plt Count 306 (150-400) K/uL MPV 8.70 (7.40-12.00) fL Neut % (Auto) 67.1 (48.0-80.0) % Lymph % (Auto) 24.0 (16.0-40.0) % Atlantic % (Auto) 7.9 (0.0-15.0) % Eos % (Auto) 0.8 (0.0-7.0) % Baso % (Auto) 0.2 (0.0-1.5) % Neut # (Auto) 7.2 H (1.4-5.7) K/uL Lymph # (Auto) 2.6 H (0.6-2.4) K/uL Atlantic # (Auto) 0.9 H (0.0-0.8) K/uL Eos # (Auto) 0.1 (0.0-0.7) K/uL Baso # (Auto) 0.0 (0.0-0.1) K/uL Nucleated RBC % 0.0 /100WBC Nucleated RBCs # 0 K/uL Sodium 142 (136-145) mmol/L Potassium 4.0 (3.5-5.1) mmol/L Chloride 104 (98-107) mmol/L Carbon Dioxide 25.3 (21.0-32.0) mmol/L BUN 11 (7.0-18.0) mg/dL Creatinine 0.8 (0.6-1.0) mg/dL Est Cr Clr Drug Dosing 94.30 mL/min Estimated GFR (MDRD) > 60.0 ml/min Glucose 119 H (74-106) mg/dL Calcium 9.4 (8.5-10.1) mg/dL Total Bilirubin 0.2 (0.2-1.0) mg/dL AST 22 (15-37) IU/L ALT 32 (14-63) IU/L Alkaline Phosphatase 109 (46-116) U/L Troponin I < 0.050 (0.000-0.056) ng/mL Total Protein 7.2 (6.4-8.2) g/dL Albumin 3.8 (3.4-5.0) g/dL Globulin 3.4 (2.6-4.0) g/dL Albumin/Globulin Ratio 1.1 (0.9-1.6) Lipase 104 (73-393) U/L Urine Color YELLOW Urine Appearance CLEAR Urine pH 6.0 (5.0-8.0) Ur Specific [place] 1.025 (1.001-1.035) Urine Protein NEGATIVE (NEGATIVE) mg/dL Urine Glucose (UA) NEGATIVE (NEGATIVE) mg/dL Urine Ketones NEGATIVE (NEGATIVE) mg/dL Urine Occult Blood TRACE-INTACT H (NEGATIVE) Urine Nitrite NEGATIVE (NEGATIVE) Urine Bilirubin NEGATIVE (NEGATIVE) Urine Urobilinogen 0.2 (<2.0) EU/dL Ur Leukocyte Esterase TRACE H (NEGATIVE) Urine RBC 0-2 (0-2/HPF) Urine WBC 3-5 (0-5/HPF) Ur Epithelial Cells RARE (NONE-FEW) Urine Bacteria FEW (NEGATIVE) Urine HCG, Qual (NEGATIVE) 10/21/19 Range/Units 19:00 WBC (4.0-11.0) K/uL RBC (4.30-5.90) M/uL Hgb (12.0-16.0) g/dL Hct (36.0-46.0) % MCV (80.0-98.0) fL MCH (27.0-32.0) pg MCHC (31.0-37.0) g/dL RDW Std Deviation (28.0-62.0) fl RDW Coeff of Sadiq (11.0-15.0) % Plt Count (150-400) K/uL MPV (7.40-12.00) fL Neut % (Auto) (48.0-80.0) % Lymph % (Auto) (16.0-40.0) % Atlantic % (Auto) (0.0-15.0) % Eos % (Auto) (0.0-7.0) % Baso % (Auto) (0.0-1.5) % Neut # (Auto) (1.4-5.7) K/uL Lymph # (Auto) (0.6-2.4) K/uL Atlantic # (Auto) (0.0-0.8) K/uL Eos # (Auto) (0.0-0.7) K/uL Baso # (Auto) (0.0-0.1) K/uL Nucleated RBC % /100WBC Nucleated RBCs # K/uL Sodium (136-145) mmol/L Potassium (3.5-5.1) mmol/L Chloride (98-107) mmol/L Carbon Dioxide (21.0-32.0) mmol/L BUN (7.0-18.0) mg/dL Creatinine (0.6-1.0) mg/dL Est Cr Clr Drug Dosing mL/min Estimated GFR (MDRD) ml/min Glucose (74-106) mg/dL Calcium (8.5-10.1) mg/dL Total Bilirubin (0.2-1.0) mg/dL AST (15-37) IU/L ALT (14-63) IU/L Alkaline Phosphatase (46-116) U/L Troponin I (0.000-0.056) ng/mL Total Protein (6.4-8.2) g/dL Albumin (3.4-5.0) g/dL Globulin (2.6-4.0) g/dL Albumin/Globulin Ratio (0.9-1.6) Lipase (73-393) U/L Urine Color Urine Appearance Urine pH (5.0-8.0) Ur Specific [place] (1.001-1.035) Urine Protein (NEGATIVE) mg/dL Urine Glucose (UA) (NEGATIVE) mg/dL Urine Ketones (NEGATIVE) mg/dL Urine Occult Blood (NEGATIVE) Urine Nitrite (NEGATIVE) Urine Bilirubin (NEGATIVE) Urine Urobilinogen (<2.0) EU/dL Ur Leukocyte Esterase (NEGATIVE) Urine RBC (0-2/HPF) Urine WBC (0-5/HPF) Ur Epithelial Cells (NONE-FEW) Urine Bacteria (NEGATIVE) Urine HCG, Qual NEGATIVE (NEGATIVE) Meds: Medications Discontinued Medications Generic Name Dose Route Start Last Admin Trade Name Freq PRN Reason Stop Dose Admin Sodium Chloride 1,000 mls @ 999 mls/hr 10/21/19 18:30 10/21/19 18:55 Normal Saline IV 10/21/19 19:30 999 mls/hr STAT ONE Administration Morphine Sulfate 4 mg 10/21/19 18:35 10/21/19 18:55 Morphine IVPUSH 10/21/19 18:36 4 mg ONETIME ONE Administration Morphine Sulfate 2 mg 10/21/19 19:46 10/21/19 19:52 Morphine IVPUSH 10/21/19 19:47 2 mg ONETIME ONE Administration Ondansetron HCl 4 mg 10/21/19 18:35 10/21/19 18:55 Zofran IVPUSH 10/21/19 18:36 4 mg ONETIME ONE Administration Departure - Departure Time of Disposition: 20:43 Disposition: Home, Self-Care 01 Clinical Impression: Abdominal pain Qualifiers: Abdominal location: right upper quadrant Qualified Code(s): R10.11 - Right upper quadrant pain UTI (urinary tract infection) Qualifiers: Urinary tract infection type: acute cystitis Hematuria presence: without hematuria Qualified Code(s): N30.00 - Acute cystitis without hematuria - Discharge Information Instructions: Urinary Tract Infection, Adult, [id number], Abdominal Pain, Adult, [id number] Referrals: Sahra Mckee DO [Primary Care Provider] - Forms: ED Department Discharge Additional Instructions: The following information is given to patients seen in the emergency department who are being discharged to home. This information is to outline your options for follow-up care. We provide all patients seen in our emergency department with a follow-up referral. The need for follow-up, as well as the timing and circumstances, are variable depending upon the specifics of your emergency department visit. If you don't have a primary care physician on staff, we will provide you with a referral. We always advise you to contact your personal physician following an emergency department visit to inform them of the circumstance of the visit and for follow-up with them and/or the need for any referrals to a consulting specialist. The emergency department will also refer you to a specialist when appropriate. This referral assures that you have the opportunity for follow-up care with a specialist. All of these measure are taken in an effort to provide you with optimal care, which includes your follow-up. Under all circumstances we always encourage you to contact your private physician who remains a resource for coordinating your care. When calling for follow-up care, please make the office aware that this follow-up is from your recent emergency room visit. If for any reason you are refused follow-up, please contact the [facility] Emergency Department at and asked to speak to the emergency department charge nurse. [facility] [address] [place] [id number] [address] 1. [place] diet over the next 24 to 48 hours. May want to keep a food journal for the general surgeon for follow-up. 2. Tylenol and/or ibuprofen as needed for pain management. You can take your home oxycodone as needed for pain. This medication is a narcotic so please be careful when driving or needing to be functioning outside of the house. 3. Please call tomorrow to set up a follow-up appointment with the general surgeon for reevaluation and further management. Return to the ED as needed and as discussed. Sepsis Event Note (ED) - Evaluation Sepsis Screening Result: No Definite Risk - Focused Exam Vital Signs: Vital Signs Temp Pulse Resp BP Pulse Ox 10/21/19 19:45 81 18 140/62 95 10/21/19 18:16 97.6 F 92 14 140/88 96 - My Orders Last 24 Hours: My Active Orders 10/21/19 18:30 EKG Documentation Completion [RC] STAT 10/21/19 19:00 CULTURE URINE [RM] Stat 10/21/19 20:42 Nitrofurantoin [place]/Macrocryst [Macrobid] 100 mg PO ONETIME ONE - Assessment/Plan Last 24 Hours: My Active Orders 10/21/19 18:30 EKG Documentation Completion [RC] STAT 10/21/19 19:00 CULTURE URINE [RM] Stat 10/21/19 20:42 Nitrofurantoin [place]/Macrocryst [Macrobid] 100 mg PO ONETIME ONE
[2019-10-21] MEDS ORDERED: Morphine 4 MG/ML Syringe IVPUSH ONE (18:35)
[2019-10-21] MEDS ORDERED: Ondansetron 4 MG/2 ML SDV IVPUSH ONE (18:35)
[2019-10-21 19:20] LABS: BLOOD UREA NITROGEN,BUN 11 mg/dL (7.0-18.0); CARBON DIOXIDE,CO2 25.3 mmol/L (21.0-32.0); CHLORIDE,CL 104 mmol/L (98-107); GLUCOSE RANDOM 119 mg/dL (74-106); LIPASE 104 U/L (73-393); SODIUM,NA 142 mmol/L (136-145)
[2019-10-21] MEDS ORDERED: Morphine 2 MG/ML Syringe IVPUSH ONE (19:46)
--- NOTE | 2019-10-21 20:16 | US ---
INDICATION: Right upper quadrant pain TECHNIQUE: Ultrasound abdomen limited. Sonographic images of the right upper quadrant were obtained using lan-scale and color Doppler images. COMPARISON: None FINDINGS: Liver: Normal in size. Increased echotexture throughout the liver. No masses. No intrahepatic biliary dilatation. Gallbladder: No stones or sludge. Normal wall thickness. No pericholecystic fluid. Sonographic Clark`s sign is positive. Common bile duct: 6 mm. Pancreas: Normal. Right kidney: 11.9 cm. Normal echotexture and cortex. No masses, stones, or hydronephrosis. Vasculature: Proximal abdominal aorta and IVC are normal. IMPRESSION: Mild dilatation of the common bile duct. No gallstones identified. Sonographic Clark`s sign is positive. Choledocholithiasis cannot be excluded. Hepatic steatosis. Dictated by Brisa Jessica MD @ Oct 21 2019 8:12PM Signed by Dr. Brisa Jessica @ Oct 21 2019 8:14PM
[2019-10-21] MEDS ORDERED: Nitrofurantoin Monohydrate/Macrocrystalline 100 MG Cap PO ONE (20:42)
== END 2019-10-21 21:02 | disposition home or self-care (01) ==
LOC: MW.ED 18:08
DX: N30.00 Acute cystitis without hematuria (principal); E66.9 Obesity, unspecified; F41.9 Anxiety disorder, unspecified; F32.9 Major depressive disorder, single episode, unspecified; Z68.36 Body mass index [BMI] 36.0-36.9, adult
CPT/HCPCS: 36415; 76705; 80053; 81001; 81025; 83690; 84484; 85025; 87086; 87088; 87186; 93005; 96361; 96374; 96375; 96376; 99285; A9270; J2270; J2405; J7030

== ENCOUNTER 2021-03-03 18:53 | Emergency (ER) | payer MEDICAID ==
[2021-03-03] MEDS ORDERED: Sodium Chloride 0.9% 2.5 ML Syringe FLUSH PRN (18:54)
[2021-03-03] MEDS ORDERED: Sodium Chloride 0.9% 10 ML Syringe FLUSH PRN (18:54)
[2021-03-03] MEDS ORDERED: Ondansetron 4 MG/2 ML SDV IVPUSH ONE (20:31)
[2021-03-03] MEDS ORDERED: Sodium Chloride 0.9% 1,000 ML IV ONE (20:31)
[2021-03-03] MEDS ORDERED: Morphine 2 MG/ML SYRINGE IVPUSH ONE (20:31)
--- NOTE | 2021-03-03 20:34 | EDM.PDOC ---
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 She states yesterday she started her menstrual period, last menses was 01/19/2021, states she is typically irregular. This menses is heavier than usual stating she is going through a regular pad every 1-2 hours. She has generalized abdominal pain and mild low back pain although nontender. She has mild nausea without vomiting. Patient denies any fever, chills, headache, change in vision, syncope or near syncope. Denies any chest pain, back pain, shortness of breath or cough. Denies any vomiting, diarrhea, constipation or dysuria. Has not noted any blood in urine or stool. No concern for STDs. Patient has been eating and drinking appropriately. No recent travel or sick contacts. Review of systems: As per history of present illness and below otherwise all systems reviewed and negative. Past medical history: As per history of present illness and as reviewed below otherwise noncontributory. Surgical history: As per history of present illness and as reviewed below otherwise no ncontributory. Social history: See social history for further information Family history: As per history of present illness and as reviewed below otherwise noncontributory. Physical exam: General: Well developed and well nourished. Alert and orientated x 3. Nontoxic in appearance and in no acute distress. Vital signs are stable and have been reviewed by me. Nursing notes were reviewed. HEENT: Atraumatic, normocephalic, pupils equal and reactive bilaterally, negative for conjunctival pallor or scleral icterus, mucous membranes moist, TMs normal bilaterally, throat clear, neck supple, nontender, trachea midline. No drooling or trismus noted. No meningeal signs. No hot potato voice noted. Lungs: Clear to auscultation bilaterally. No wheezes, rales, or rhonchi. Chest nontender. Normal work of breathing, no accessory muscles used. Heart: S1S2, regular rate and rhythm without overt murmur, gallops, or rubs. No JVD. No peripheral edema Abdomen: Soft, nondistended, nontender. Normoactive bowel sounds. Negative for masses or costovertebral tenderness. Skin: Intact, warm, dry. No lesions or rashes noted. Hematologic: No petechiae or purpra. Mucosa appropriate color and normal nail bed color and refill. Extremities: Atraumatic, moves all extremities per self without difficulty or deficits, negative for cords or calf pain. Neurovascular unremarkable. Neuro: Awake, alert, oriented. Cranial nerves II through XII unremarkable. Cerebellum unremarkable. Motor and sensory unremarkable throughout. Exam nonfocal. Psychiatric: Mood and affect are appropriate. Normal thought process. Answering questions appropriately. Please note that the patient was seen and evaluated during the 2019 SARS-CoV-2 novel coronavirus pandemic period. Community viral transmission is ongoing at time of this encounter and the emergency department is operating under pandemic response procedures. Medical Decision Making: Patient is a 40-year-old female who presents to the emergency room with complaints of generalized abdominal pain, low back pain, dizziness, vaginal bleeding and nausea that started yesterday. Patient states she typically has irregular menses although they have been light in the past. Last menstrual period was 01/19/2021. States there is a possibility of although she has no concerns for STDs. States she is having to change her pad every 1-2 hours. Physical exam reveals generalized abdominal pain in all 4 quadrants. Pain is not any worse in the left or right lower quadrant, points to the suprapubic region. Vital signs are stable. We will do basic lab work and test. is negative. Currently there is not a pelvic bed available to perform a pelvic exam. She does have a slight leukocytosis although I have no concern for ovarian torsion etc., I will do a CT scan of the abdomen and pelvis with contrast. Results pending. Dr Lau will assume care of this patient and disposition/treat accordingly. Diagnostics: CBC, CMP, test, CT abdomen and pelvis Therapeutics: IV fluids, Zofran, Morphine Definitive disposition and diagnosis as appropriate pending reevaluation and review of above. Duration: Day(s): Location: Reports: Abdomen Abdomen Pain Score (Numeric/FACES): 8 - Related Data Allergies Allergy/AdvReac Type Severity Reaction Status Date / Time No Known Allergies Allergy Verified 03/03/21 20:04 Home Meds: Home Meds DULoxetine [Cymbalta] 60 mg PO DAILY 11/07/18 [History] Pregabalin [Lyrica] 25 mg PO TID 10/21/19 [History] oxyCODONE HCl/Acetaminophen [Percocet 10-325 mg Tablet] 1 each PO ASDIRECTED PRN 10/21/19 [History] Past Medical History HEENT History: Reports: Hard of Hearing Other HEENT History: wears glasses, has right hearing aide Cardiovascular History: Reports: None Respiratory History: Reports: None Gastrointestinal History: Reports: GERD, Other (See Below) Other Gastrointestinal History: heartburn during Genitourinary History: Reports: None 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: , 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 Musculoskeletal History: Reports: Back Pain, Chronic Neurological History: Reports: Concussion Other Neuro History: hx of motion sickness Psychiatric History: Reports: Anxiety, Depression Endocrine/Metabolic History: Reports: Diabetes, Gestational, Obesity/BMI 30+ 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 Hematologic History: Reports: None Immunologic History: Reports: None Oncologic (Cancer) History: Reports: None Dermatologic History: Reports: None - Infectious Disease History Infectious Disease History: Reports: None - Past Surgical History Head Surgeries/Procedures: Reports: None HEENT Surgical History: Reports: Oral Surgery Cardiovascular Surgical History: Reports: None Respiratory Surgical History: Reports: None GI Surgical History: Reports: None Female Surgical History: Reports: Section, D&C Endocrine Surgical History: Reports: None Neurological Surgical History: Reports: None Musculoskeletal Surgical History: Reports: None Oncologic Surgical History: Reports: None Dermatological Surgical History: Reports: None Social & Family History - Family History Family Medical History: No Pertinent Family History HEENT: Reports: Cataract, Glaucoma, Hearing Impairment, Impaired Vision, Macular Degeneration Cardiac: Reports: CAD, High Cholesterol, Hypertension Respiratory: Reports: None GI: Reports: Cholelithiasis, Irritable Bowel Syndrome : Reports: None OBGYN: Reports: Musculoskeletal: Reports: Osteoarthritis Neurological: Reports: Migraines Psychiatric: Reports: ADD, ADHD, Anxiety, Autism, Depression Endocrine/Metabolic: Reports: Diabetes, type II Hematologic: Reports: None Immunologic: Reports: None Dermatologic: Reports: None Oncologic: Reports: Colon - Caffeine Use Caffeine Use: Reports: None Caffeine Use Comment: ocassionally - Recreational Drug Use Recreational Drug Use: No ED ROS GENERAL - Review of Systems Review Of Systems: Comprehensive ROS is negative, except as noted in HPI. ED EXAM, GI/ABD - Physical Exam Exam: See Below (See dictation) Departure - Departure Disposition: Home, Self-Care 01 Clinical Impression: Abnormal uterine bleeding, Angiectasia - Discharge Information Instructions: Abnormal Uterine Bleeding Referrals: Sahra Mckee DO [Primary Care Provider] - Forms: ED Department Discharge Additional Instructions: You were evaluated today on an emergent basis. At this time your labs and vitals were all normal. You did have some blood in your urine likely secondary to the vaginal bleeding. The CT of your abdomen and pelvis does not reveal any acute findings but did reveal some evidence of a dilated vessel in the stomach. At this time you not vomiting blood and not having any blood in your stool I do recommend that you make an appointment with general surgery for a endoscopy. In regards to the vaginal bleeding I do believe you need to follow-up with gynecology to discuss further options. There was no abnormality on CT. If you have any worsening symptoms please return to the emergency department. Otherwise take Tylenol and Motrin for pain relief at home. [facility] - General Surgery Professional Building [address] [place] [address], [address] [place] [address] [facility] [address] [place] [id number] [facility] [address] [place] [address] The patient is informed of any results of their evaluation and diagnostic workup and all questions are answered. They are given discharge instructions and return precautions. The patient is stable for discharge. The patient states they understand and agree with the plan and that they will return if their symptoms get worse or if they have any new concerns. The following information is given to patients seen in the emergency department who are being discharged to home. This information is to outline your options for follow-up care. We provide all patients seen in our emergency department with a follow-up referral. The need for follow-up, as well as the timing and circumstances, are variable depending upon the specifics of your emergency department visit. If you don't have a primary care physician on staff, we will provide you with a referral. We always advise you to contact your personal physician following an emergency department visit to inform them of the circumstance of the visit and for follow-up with them and/or the need for any referrals to a consulting specialist. The emergency department will also refer you to a specialist when appropriate. This referral assures that you have the opportunity for follow-up care with a specialist. All of these measure are taken in an effort to provide you with optimal care, which includes your follow-up. Under all circumstances we always encourage you to contact your private physician who remains a resource for coordinating your care. When calling for follow-up care, please make the office aware that this follow-up is from your recent emergency room visit. If for any reason you are refused follow-up, please contact the [facility] Emergency Department at and asked to speak to the emergency department charge nurse. Sepsis Event Note (ED) - Evaluation Sepsis Screening Result: No Definite Risk <Elroy Lau - Last Filed: 03/04/21 06:38> ED HPI GENERAL MEDICAL PROBLEM - History of Present Illness INITIAL COMMENTS - FREE TEXT/NARRATIVE: Patient was signed out to me by Christa OLIVER at 7pm. I promptly performed a detailed physical examination and my examination was done after ED treatments were initiated by the signout provider. Patient has been under the care of previous provider up until this point. The radiological images were viewed by myself along with reading the report from the radiologist. CT abdomen pelvis with contrast does not reveal any acute intra-abdominal pathology. There is a subcentimeter focus of enhancement in the wall of the gastric fundus with a feeding vessel likely representing angio ectasia without any evidence of active bleeding. There is subtle sclerosis within the posterior iliac bone of uncertain significance and hepatomegaly with hepatic steatosis. After imaging I did discuss the results with the patient. At this time the patient's labs are essentially within normal limits other than a nonspecific leukocytosis. The patient is here with abnormal uterine bleeding without any anemia or vital sign abnormalities. At this time I did discuss she should fol low-up with gynecology for further recommendations given her abnormal periods. In addition I did discuss the finding on CT and discuss follow-up with general surgery for possible endoscopy. She was given strict return precautions. The patient was amenable to discharge and had no further questions DISPOSITION: The patient was discharged home in stable condition. The patient will follow up with gynecology and general surgery CONDITION: Fair PROCEDURES: None FINAL IMPRESSION(S)/DIAGNOSES: 1. Acute vaginal bleeding secondary to abnormal uterine bleeding 2. Acute angiectasia of the stomach Elroy Lau M.D. Course - Vital Signs Last Recorded V/S: Last Vital Signs Temp 36.0 C L 03/03/21 20:05 Pulse 61 03/04/21 00:33 Resp 18 03/03/21 22:43 BP 129/76 03/04/21 00:33 Pulse Ox 97 03/04/21 00:33 - Orders/Labs/Meds Orders: Active Orders 24 hr Category Date Time Status Saline Lock Insert [OM.PC] Stat Oth 03/03/21 18:54 Ordered Labs: Laboratory Tests 03/03/21 03/03/21 03/03/21 Range/Units 20:12 20:12 20:12 WBC 13.00 H (4.0-11.0) K/uL RBC 4.58 (4.30-5.90) M/uL Hgb 14.1 (12.0-16.0) g/dL Hct 41.8 (36.0-46.0) % MCV 91.3 (80.0-98.0) fL MCH 30.8 (27.0-32.0) pg MCHC 33.7 (31.0-37.0) g/dL RDW Std Deviation 43.8 (28.0-62.0) fl RDW Coeff of Sadiq 13 (11.0-15.0) % Plt Count 340 (150-400) K/uL MPV 9.30 (7.40-12.00) fL Neut % (Auto) 65.4 (48.0-80.0) % Lymph % (Auto) 25.8 (16.0-40.0) % [place] % (Auto) 7.9 (0.0-15.0) % Eos % (Auto) 0.7 (0.0-7.0) % Baso % (Auto) 0.2 (0.0-1.5) % Neut # (Auto) 8.5 H (1.4-5.7) K/uL Lymph # (Auto) 3.4 H (0.6-2.4) K/uL [place] # (Auto) 1.0 H (0.0-0.8) K/uL Eos # (Auto) 0.1 (0.0-0.7) K/uL Baso # (Auto) 0.0 (0.0-0.1) K/uL Nucleated RBC % 0.0 /100WBC Nucleated RBCs # 0 K/uL Sodium 138 (136-145) mmol/L Potassium 4.3 (3.5-5.1) mmol/L Chloride 104 (98-107) mmol/L Carbon Dioxide 27.5 (21.0-32.0) mmol/L BUN 19 H (7.0-18.0) mg/dL Creatinine 0.9 (0.6-1.0) mg/dL Est Cr Clr Drug Dosing 82.98 mL/min Estimated GFR (MDRD) > 60.0 ml/min Glucose 103 (74-106) mg/dL Calcium 8.7 (8.5-10.1) mg/dL Total Bilirubin 0.2 (0.2-1.0) mg/dL AST 16 (15-37) IU/L ALT 31 (14-63) IU/L Alkaline Phosphatase 97 (46-116) U/L Total Protein 7.6 (6.4-8.2) g/dL Albumin 3.4 (3.4-5.0) g/dL Globulin 4.2 H (2.6-4.0) g/dL Albumin/Globulin Ratio 0.8 L (0.9-1.6) HCG, Qual NEGATIVE (NEG) Urine Color Urine Appearance Urine pH (5.0-8.0) Ur Specific [place] (1.001-1.035) Urine Protein (NEGATIVE) mg/dL Urine Glucose (UA) (NEGATIVE) mg/dL Urine Ketones (NEGATIVE) mg/dL Urine Occult Blood (NEGATIVE) Urine Nitrite (NEGATIVE) Urine Bilirubin (NEGATIVE) Urine Urobilinogen (<2.0) EU/dL Ur Leukocyte Esterase (NEGATIVE) Urine RBC (0-2/HPF) Urine WBC (0-5/HPF) Ur Epithelial Cells (NONE-FEW) Urine Bacteria (NEGATIVE) 03/03/21 Range/Units 23:06 WBC (4.0-11.0) K/uL RBC (4.30-5.90) M/uL Hgb (12.0-16.0) g/dL Hct (36.0-46.0) % MCV (80.0-98.0) fL MCH (27.0-32.0) pg MCHC (31.0-37.0) g/dL RDW Std Deviation (28.0-62.0) fl RDW Coeff of Sadiq (11.0-15.0) % Plt Count (150-400) K/uL MPV (7.40-12.00) fL Neut % (Auto) (48.0-80.0) % Lymph % (Auto) (16.0-40.0) % [place] % (Auto) (0.0-15.0) % Eos % (Auto) (0.0-7.0) % Baso % (Auto) (0.0-1.5) % Neut # (Auto) (1.4-5.7) K/uL Lymph # (Auto) (0.6-2.4) K/uL [place] # (Auto) (0.0-0.8) K/uL Eos # (Auto) (0.0-0.7) K/uL Baso # (Auto) (0.0-0.1) K/uL Nucleated RBC % /100WBC Nucleated RBCs # K/uL Sodium (136-145) mmol/L Potassium (3.5-5.1) mmol/L Chloride (98-107) mmol/L Carbon Dioxide (21.0-32.0) mmol/L BUN (7.0-18.0) mg/dL Creatinine (0.6-1.0) mg/dL Est Cr Clr Drug Dosing mL/min Estimated GFR (MDRD) ml/min Glucose (74-106) mg/dL Calcium (8.5-10.1) mg/dL Total Bilirubin (0.2-1.0) mg/dL AST (15-37) IU/L ALT (14-63) IU/L Alkaline Phosphatase (46-116) U/L Total Protein (6.4-8.2) g/dL Albumin (3.4-5.0) g/dL Globulin (2.6-4.0) g/dL Albumin/Globulin Ratio (0.9-1.6) HCG, Qual (NEG) Urine Color YELLOW Urine Appearance CLOUDY Urine pH 5.5 (5.0-8.0) Ur Specific [place] 1.010 (1.001-1.035) Urine Protein NEGATIVE (NEGATIVE) mg/dL Urine Glucose (UA) NEGATIVE (NEGATIVE) mg/dL Urine Ketones NEGATIVE (NEGATIVE) mg/dL Urine Occult Blood LARGE H (NEGATIVE) Urine Nitrite NEGATIVE (NEGATIVE) Urine Bilirubin NEGATIVE (NEGATIVE) Urine Urobilinogen 0.2 (<2.0) EU/dL Ur Leukocyte Esterase NEGATIVE (NEGATIVE) Urine RBC 45-50 (0-2/HPF) Urine WBC 0-2 (0-5/HPF) Ur Epithelial Cells FEW (NONE-FEW) Urine Bacteria RARE (NEGATIVE) Meds: Medications Discontinued Medications Generic Name Dose Route Start Last Admin Trade Name Freq PRN Reason Stop Dose Admin Sodium Chloride 1,000 mls @ 999 mls/hr 03/03/21 20:31 03/03/21 20:57 Normal Saline IV 03/03/21 21:31 999 mls/hr STAT ONE Administration Iopamidol 100 ml 03/03/21 21:44 03/03/21 21:44 Iopamidol 755 Mg/Ml 500 Ml Multipack Bottle IVPUSH 03/03/21 21:45 100 ml ONETIME STA Administration Ketorolac Tromethamine 15 mg 03/04/21 00:24 03/04/21 00:34 Ketorolac 15 Mg/Ml Sdv IVPUSH 03/04/21 00:25 15 mg ONETIME ONE Administration Morphine Sulfate 4 mg 03/03/21 20:31 03/03/21 21:00 Morphine 2 Mg/Ml Syringe IVPUSH 03/03/21 20:32 4 mg ONETIME ONE Administration Ondansetron HCl 4 mg 03/03/21 20:31 03/03/21 20:57 Ondansetron 4 Mg/2 Ml Sdv IVPUSH 03/03/21 20:32 4 mg ONETIME ONE Administration Sodium Chloride 10 ml 03/03/21 18:54 03/03/21 20:14 Sodium Chloride 0.9% 10 Ml Syringe FLUSH 10 ml ASDIRECTED PRN Administration Keep Vein Open Sodium Chloride 2.5 ml 03/03/21 18:54 03/03/21 20:13 Sodium Chloride 0.9% 2.5 Ml Syringe FLUSH 2.5 ml ASDIRECTED PRN Administration Keep Vein Open Departure - Departure Time of Disposition: 00:06 Condition: Fair - Discharge Information *PRESCRIPTION DRUG MONITORING PROGRAM REVIEWED*: No *COPY OF PRESCRIPTION DRUG MONITORING REPORT IN PATIENT MANUEL: No Sepsis Event Note (ED) - Focused Exam Vital Signs: Vital Signs Temp Pulse Resp BP Pulse Ox 03/04/21 00:33 61 129/76 97 03/03/21 22:43 67 18 99/56 L 99 03/03/21 21:05 68 105/75 96 03/03/21 20:05 36.0 C L 77 18 111/69 97
[2021-03-03 20:42] LABS: BLOOD UREA NITROGEN,BUN 19 mg/dL (7.0-18.0); CARBON DIOXIDE,CO2 27.5 mmol/L (21.0-32.0); CHLORIDE,CL 104 mmol/L (98-107); GLUCOSE RANDOM 103 mg/dL (74-106); POTASSIUM,K 4.3 mmol/L (3.5-5.1); SODIUM,NA 138 mmol/L (136-145)
[2021-03-03] MEDS ORDERED: Iopamidol 755 MG/ML 500 ML Multipack Bottle IVPUSH STA (21:44)
--- NOTE | 2021-03-03 22:22 | CT ---
INDICATION: Pain. TECHNIQUE: CT of the abdomen and pelvis with 100 cc Isovue 370 IV contrast. Coronal and sagittal reconstructions. COMPARISON: Abdominal ultrasound 10/21/2019. FINDINGS: The liver is enlarged measuring 20 cm in length. Diffuse hepatic steatosis. The gallbladder, spleen, pancreas, and adrenal glands are negative. No biliary dilation. Hepatic and portal veins are patent. Symmetric enhancement of the kidneys. No hydronephrosis or ureteral dilation. No obstructing urinary calculi. The bladder and uterus are normal appearance. Small follicles in both ovaries. No bowel dilation. There is a small focus of enhancement within the wall of the gastric fundus measuring approximately 0.9 cm in size (series 201 image 32 and series 203 image 79). There appears to be a feeding vessel supplying the lesion. This could possibly represent an angioectasia. No evidence of intraluminal blood products. Negative appendix. No intraperitoneal free air or fluid. Small fat containing umbilical hernia. No lymphadenopathy. Mild degenerative changes of spine. There is subtle sclerosis within the posterior right iliac bone of uncertain significance (series 201, image 134). No irregularity of the sacroiliac joint. Minimal bibasilar atelectasis. IMPRESSION: 1. Subcentimeter focus of enhancement in the wall of the gastric fundus with a feeding vessel could possibly represent an angioectasia. No evidence of active bleeding. This could be further evaluated with endoscopy. 2. Subtle sclerosis within the posterior right iliac bone of uncertain significance. 3. Hepatomegaly with diffuse hepatic steatosis. 4. No other acute findings in the abdomen or pelvis. Please note that all CT scans at this facility use dose modulation, iterative reconstruction, and/or weight-based dosing when appropriate to reduce radiation dose to as low as reasonably achievable. Dictated by Yesi Gonzalez MD @ 03/03/2021 10:21:04 PM (Electronically Signed)
[2021-03-04] MEDS ORDERED: Ketorolac 15 MG/ML SDV IVPUSH ONE (00:24)
== END 2021-03-04 00:43 | disposition home or self-care (01) ==
LOC: MW.ED 18:53
DX: N93.9 Abnormal uterine and vaginal bleeding, unspecified (principal); I99.8 Other disorder of circulatory system; E66.9 Obesity, unspecified; Z68.39 Body mass index [BMI] 39.0-39.9, adult
CPT/HCPCS: 36415; 74177; 80053; 81001; 84703; 85025; 96374; 96375; 99284; J1885; J2270; J2405; J7030; Q9967

== ENCOUNTER 2021-03-23 08:22 | Day surgery (SDC) | payer MEDICAID ==
[~2021-03-23 08:22] MED LIST: Lactated Ringers 1,000 ML IV SCH; Sodium Chloride 0.9% 10 ML Syringe FLUSH PRN; Sodium Chloride 0.9% 2.5 ML Syringe FLUSH PRN; Sodium Chloride 0.9% 20 ML SDV IV PRN
--- NOTE | 2021-03-23 09:00 | PCM.PREANE ---
Preanesthetic Assessment - Procedure Proposed Procedure: EGD, Colonoscopy - Anesthesia/Transfusion/Family Hx Anesthesia History: Prior Anesthesia Without Reaction Other Type of Anesthesia Reaction Comment: Terrible headache with epidural, had a blood patch Family History of Anesthesia Reaction: No Transfusion History: No Prior Transfusion(s) Type of Transfusion Reactions: Reports: Unknown Intubation History: Unknown - Review of Systems General: No Symptoms Pulmonary: No Symptoms (Vapes) Cardiovascular: No Symptoms Gastrointestinal: No Symptoms (GERD well controlled) Neurological: No Symptoms (chronic back pain secondary to DDD) Other: Reports: Depression, Anxiety - Physical Assessment NPO Status Date: 03/23/21 NPO Status Time: 00:05 Vital Signs: Last Vital Signs Temp 96.4 F L 03/23/21 08:30 Pulse 99 03/23/21 08:30 Resp 16 03/23/21 08:30 BP 114/77 03/23/21 08:30 Pulse Ox 96 03/23/21 08:30 Height: 5 ft 8 in Weight: 121.563 kg ASA Class: 3 Mental Status: Alert & Oriented x3 Airway Class: Mallampati = 3 Dentition: Reports: Normal Dentition Thyro-Mental Finger Breadths: 3 Mouth Opening Finger Breadths: 3 ROM/Head Extension: Full Lungs: Clear to Auscultation, Normal Respiratory Effort Cardiovascular: Regular Rate, Regular Rhythm - Lab Values: Laboratory Last Values Urine HCG, Qual NEGATIVE (NEGATIVE) 03/23/21 08:30 - Allergies Allergies/Adverse Reactions: Allergies Allergy/AdvReac Type Severity Reaction Status Date / Time No Known Allergies Allergy Verified 03/03/21 20:04 - Acknowledgements Anesthesia Type Planned: General Anesthesia Pt an Appropriate Candidate for the Planned Anesthesia: Yes Alternatives and Risks of Anesthesia Discussed w Pt/Guardian: Yes Pt/Guardian Understands and Agrees with Anesthesia Plan: Yes PreAnesthesia Questionnaire HEENT History: Reports: Hard of Hearing Other HEENT History: wears glasses, has right hearing aide Cardiovascular History: Reports: None Respiratory History: Reports: None Gastrointestinal History: Reports: GERD Genitourinary History: Reports: None WAREHOUSE MANAGER History: Reports: , Spontaneous Musculoskeletal History: Reports: Back Pain, Chronic Other Musculoskeletal History: spinal stenosis Neurological History: Reports: Concussion Other Neuro History: hx of motion sickness Psychiatric History: Reports: Anxiety, Depression Endocrine/Metabolic History: Reports: Diabetes, Gestational, Obesity/BMI 30+ Hematologic History: Reports: None Immunologic History: Reports: None Oncologic (Cancer) History: Reports: None Dermatologic History: Reports: None - Infectious Disease History Infectious Disease History: Reports: None - Past Surgical History Head Surgeries/Procedures: Reports: None HEENT Surgical History: Reports: Oral Surgery Other HEENT Surgeries/Procedures: wisdom teeth Cardiovascular Surgical History: Reports: None Respiratory Surgical History: Reports: None GI Surgical History: Reports: None Female Surgical History: Reports: Section, D&C Endocrine Surgical History: Reports: None Neurological Surgical History: Reports: None Musculoskeletal Surgical History: Reports: None Oncologic Surgical History: Reports: None Dermatological Surgical History: Reports: None - SUBSTANCE USE Tobacco Use Within Last Twelve Months: Vaping - HOME MEDS Home Medications: Home Meds DULoxetine [Cymbalta] 30 mg PO DAILY 11/07/18 [History] Pregabalin [Lyrica] 100 mg PO TID 10/21/19 [History] oxyCODONE HCl/Acetaminophen [Percocet 10-325 mg Tablet] 1 each PO ASDIRECTED PRN 10/21/19 [History] Clobetasol [Clobetasol Propionate 0.05% Cream] 1 applic TOP BID PRN 03/17/21 [History] Diclofenac Sodium [Voltaren 1% Gel] 1 applic TOP ASDIRECTED PRN 03/17/21 [Hist ory] LORazepam [Ativan] 0.5 mg PO BID PRN 03/17/21 [History] Omeprazole 40 mg PO DAILY 03/17/21 [History] - CURRENT (IN HOUSE) MEDS Current Meds: Current Medications Lactated Ringer's (Ringers, Lactated) 1,000 mls @ 125 mls/hr IV ASDIRECTED [facility] Last Admin: 03/23/21 08:27 Dose: 125 mls/hr Documented by: Sodium Chloride (Sodium Chloride 0.9% 10 Ml Syringe) 10 ml FLUSH ASDIRECTED PRN PRN Reason: Keep Vein Open Sodium Chloride (Sodium Chloride 0.9% 2.5 Ml Syringe) 2.5 ml FLUSH ASDIRECTED PRN PRN Reason: Keep Vein Open Sodium Chloride (Sodium Chloride 0.9% 10 Ml Syringe) 10 ml FLUSH ASDIRECTED PRN PRN Reason: Keep Vein Open Sodium Chloride (Sodium Chloride 0.9% 2.5 Ml Syringe) 2.5 ml FLUSH ASDIRECTED PRN PRN Reason: Keep Vein Open Sodium Chloride (Sodium Chloride 0.9% 20 Ml Sdv) 10 ml IV ASDIRECTED PRN PRN Reason: IV Use
[2021-03-23] MEDS ORDERED: propofoL 50 ML ONE (09:05)
[2021-03-23] MEDS ORDERED: Benzocaine 20% Topical Spray UD ONE (09:24)
[2021-03-23] MEDS ORDERED: fentaNYL 100 MCG/2 ML SDV ONE (09:24)
--- NOTE | 2021-03-23 10:10 | PCM.OPNOTE ---
- General Post-Op/Procedure Note Date of Surgery/Procedure: 03/23/21 Operative Procedure(s): Diagnostic EGD and screening colonoscopy Findings: Normal appearing stomach, normal colonoscopy Pre Op Diagnosis: Stomach lesion on CT imaging, family history of colon cancer Post-Op Diagnosis: Normal EGD and colonoscopy Anesthesia Technique: RAMAN Primary Surgeon: Tanna Kee Condition: Good
--- NOTE | 2021-03-23 10:16 | PCM.POSTAN ---
POST ANESTHESIA ASSESSMENT - MENTAL STATUS Mental Status: Somnolent - VITAL SIGNS Vital Signs: Last Vital Signs Temp 96.4 F L 03/23/21 08:30 Pulse 99 03/23/21 08:30 Resp 16 03/23/21 08:30 BP 114/77 03/23/21 08:30 Pulse Ox 96 03/23/21 08:30 - RESPIRATORY Respiratory Status: Respiratory Rate WNL, Airway Patent, O2 Saturation Stable - CARDIOVASCULAR CV Status: Pulse Rate WNL, Blood Pressure Stable - GASTROINTESTINAL GI Status: No Symptoms - PAIN Free Text/Narrative:: Resting comfortably - POST OP HYDRATION Hydration Status: Adequate & Stable
--- NOTE | 2021-03-23 10:23 | PCM48HPAN ---
Post Anesthesia Note - EVALUATION WITHIN 48HRS OF ANESTHETIC Vital Signs in Normal Range: Yes Patient Participated in Evaluation: Yes Respiratory Function Stable: Yes Airway Patent: Yes Cardiovascular Function Stable: Yes Hydration Status Stable: Yes Pain Control Satisfactory: Yes Nausea and Vomiting Control Satisfactory: Yes Mental Status Recovered: Yes Vital Signs: Last Vital Signs Temp 96.4 F L 03/23/21 08:30 Pulse 99 03/23/21 08:30 Resp 16 03/23/21 08:30 BP 114/77 03/23/21 08:30 Pulse Ox 96 03/23/21 08:30 - COMMENTS/OBSERVATIONS Free Text/Narrative:: Pt doing well post-op. VSS. No apparent anesthetic complications. Dr. Rich Edgar
--- NOTE | 2021-03-23 14:32 | OR ---
SURGEON: TANNA KEE MD DATE OF PROCEDURE: 03/23/2021 PREOPERATIVE DIAGNOSES: Stomach lesion seen on CT scan, family history of colon cancer. POSTOPERATIVE DIAGNOSIS: Normal esophagogastroduodenoscopy and colonoscopy. PROCEDURES PERFORMED: Diagnostic esophagogastroduodenoscopy and screening colonoscopy. PRIMARY SURGEON: Tanna Kee MD ANESTHESIA: MAC. INSTRUMENTS USED: Olympus endoscope and colonoscope. EXTENT OF EXAM: To the second portion of the duodenum, to the cecum. PREPARATION: Good. LIMITATIONS: None. INDICATIONS FOR EXAMINATION: The patient is a 40-year-old female who recently presented to the emergency room with abdominal pain. A CT scan showed a lesion in the stomach concerning for angioectasia. The patient has a family history of colon cancer and her mother has had multiple colonoscopies to remove multiple polyps. The decision was made to proceed with a diagnostic EGD as well as a screening colonoscopy. I explained the procedures, expected perioperative course, and the risks. She verbalized understanding and wishes to proceed. PROCEDURE IN DETAIL: The patient was brought in to the endoscopy suite and placed in a left lateral decubitus position. A time-out was completed verifying the patient's name, age, date of , allergies, and procedure to be performed. A bite block was placed in the patient's mouth. Monitored anesthesia care was induced and continuous oxygen was provided via face mask throughout the procedure. After adequate sedation was achieved, a well-lubricated endoscope was placed in the patient's mouth and advanced under direct visualization to the second portion of duodenum. This appeared normal and a photograph was taken. The scope was then fully withdrawn while examining the color, texture, anatomy, and integrity of the mucosa of the upper GI tract. The duodenum appeared normal. The scope was brought into the stomach and a photograph was taken of the pylorus as well as the GE junction with the scope retroflexed. I did not see any evidence of any AVMs. Multiple photographs were taken. Photographs were taken as well with narrow band imaging. Again, I did not see any specific lesion. The scope was straightened out. Biopsies were taken of the gastric antrum, body, and fundus and sent for histologic review. The scope was brought into the distal esophagus. A photograph was taken of a normal-appearing Z-line. The rest of the distal esophagus appeared normal. The scope was removed and this portion of the procedure terminated. A digital rectal exam was performed. This exam was within normal limits. A well-lubricated colonoscope was inserted into the rectum and advanced under direct visualization to the level of the cecum. The cecum was identified by both visual and anatomic landmarks. A photograph was taken of the cecal cap, however, I was unable to retroflex the scope within the cecum due to looping of the scope more proximally. The scope was then fully withdrawn while examining the color, texture, anatomy, and integrity of mucosa from the cecum to the anal canal. The findings were consistent with normal colonic mucosa. The scope was brought into the rectum and retroflexed to allow visualization of the anal canal opening. This appeared normal and a photograph was taken. The scope was then straightened out and fully withdrawn. The cecum to anus time was 7 minutes. The patient tolerated the procedure well and was transferred to the PACU in stable condition. ENDOSCOPIC DIAGNOSIS: Normal appearing esophagogastroduodenoscopy and colonoscopy. RECOMMENDATIONS: We will follow up with the patient in two weeks in clinic to discuss any further steps in diagnosis and treatment. SARAH MARIO /[id number]
== END 2021-03-23 11:45 | disposition home or self-care (01) ==
LOC: MW.SDS 08:22
PROVIDERS: ATTEND Surgery
DX: Z12.11 Encounter for screening for malignant neoplasm of colon (principal); K31.89 Other diseases of stomach and duodenum; K21.9 Gastro-esophageal reflux disease without esophagitis; E66.9 Obesity, unspecified; Z68.41 Body mass index [BMI] 40.0-44.9, adult; Z80.0 Family history of malignant neoplasm of digestive organs; Z79.899 Other long term (current) drug therapy; Z98.890 Other specified postprocedural states; Z87.891 Personal history of nicotine dependence; Z83.71 Family history of colonic polyps
CPT/HCPCS: 43239; 45378; 81025; A9270; J2704; J3010; J7120; 00813

== ENCOUNTER 2022-05-18 15:19 | Emergency (ER) | payer MEDICAID ==
[2022-05-18] MEDS ORDERED: Sodium Chloride 0.9% 1,000 ML IV ONE (16:21)
[2022-05-18] MEDS ORDERED: diphenhydrAMINE 50 MG/ML SDV IVPUSH ONE (16:21)
[2022-05-18] MEDS ORDERED: Ketorolac 30 MG/ML SDV IVPUSH ONE (16:21)
[2022-05-18] MEDS ORDERED: Metoclopramide 10 MG/2 ML SDV IVPUSH ONE (16:21)
[2022-05-18] MEDS ORDERED: Ondansetron 4 MG/2 ML SDV IVPUSH ONE (16:21)
[2022-05-18] MEDS ORDERED: methylPREDNISolone Sodium Succinate 125 MG/2 ML SDV IM ONE (16:33)
[2022-05-18] MEDS ORDERED: HYDROmorphone 1 MG/ML Syringe IM ONE ×2 (16:33→19:56)
== END 2022-05-18 20:32 | disposition home or self-care (01) ==
LOC: MW.ED 15:19
DX: M54.42 Lumbago with sciatica, left side (principal); K21.9 Gastro-esophageal reflux disease without esophagitis; E66.9 Obesity, unspecified; Z68.39 Body mass index [BMI] 39.0-39.9, adult; Z79.899 Other long term (current) drug therapy
CPT/HCPCS: 72131; 96372; 99284; J1170; J2930

== ENCOUNTER 2023-01-12 10:44 | Emergency (ER) | payer MEDICAID ==
[2023-01-12] MEDS ORDERED: Sodium Chloride 0.9% 1,000 ML IV ONE (11:02)
[2023-01-12] MEDS ORDERED: Ketorolac 30 MG/ML SDV IVPUSH ONE (11:02)
[2023-01-12] MEDS ORDERED: Metoclopramide 10 MG/2 ML SDV IVPUSH ONE (11:02)
[2023-01-12] MEDS ORDERED: diphenhydrAMINE 50 MG/ML SDV IVPUSH ONE (11:02)
[2023-01-12] MEDS ORDERED: Sucralfate 1 GM Tab PO ONE (11:03)
[2023-01-12] MEDS ORDERED: Aluminum Hydroxide/Magnesium Hydroxide/Simethicone XS Susp 30 ML Cup PO ONE (11:03)
[2023-01-12 11:53] LABS: BASOPHILS PERCENT AUTO 0.2 % (0.0-1.5); EOSINOPHILS ABSOLUTE AUTO 0.1 K/uL (0.0-0.7); EOSINOPHILS PERCENT AUTO 0.7 % (0.0-7.0); HEMATOCRIT 41.5 % (36.0-46.0); HEMOGLOBIN 13.9 g/dL (12.0-16.0); LYMPHOCYTES ABSOLUTE AUTO 1.7 K/uL (0.6-2.4); MEAN CORPUSCULAR HEMOGLOBIN 29.5 pg (27.0-32.0); MEAN CORPUSCULAR HGB CONC 33.5 g/dL (31.0-37.0); MEAN CORPUSCULAR VOLUME 88.1 fL (80.0-98.0); MONOCYTES ABSOLUTE AUTO 0.5 K/uL (0.0-0.8); MONOCYTES PERCENT AUTO 5.9 % (0.0-15.0); NEUTROPHILS ABSOLUTE AUTO 6.2 K/uL (1.4-5.7); NEUTROPHILS PERCENT AUTO 73.2 % (48.0-80.0); NRBC ABSOLUTE 0 K/uL; PLATELET COUNT,PLT 385 K/uL (150-400); RED BLOOD CELL COUNT 4.71 M/uL (4.30-5.90); WHITE BLOOD CELL COUNT,WBC 8.49 K/uL (4.0-11.0)
[2023-01-12 12:16] LABS: A/G RATIO 0.9 (0.9-1.6); ALBUMIN 3.9 g/dL (3.4-5.0); BILIRUBIN TOTAL 0.4 mg/dL (0.2-1.0); CALCIUM 8.9 mg/dL (8.5-10.1); CARBON DIOXIDE,CO2 23.7 mmol/L (21.0-32.0); CREATININE 0.8 mg/dL (0.6-1.0); EST CRCL DRUG DOSING (CG) 91.47 mL/min; POTASSIUM,K 3.8 mmol/L (3.5-5.1); PROTEIN TOTAL,TP 8.2 g/dL (6.4-8.2)
[2023-01-12 12:16] LABS: APPEARANCE,URINE CLEAR; BILIRUBIN,URINE NEGATIVE (NEGATIVE); COLOR,URINE YELLOW; GLUCOSE,URINE NEGATIVE (NEGATIVE); KETONES,URINE TRACE mg/dL (NEGATIVE); LEUKOCYTE ESTERASE,URINE NEGATIVE (NEGATIVE); NITRITE,URINE POSITIVE (NEGATIVE); OCCULT BLOOD,URINE NEGATIVE (NEGATIVE); PH,URINE 5.5 (5.0-8.0); PROTEIN,URINE NEGATIVE (NEGATIVE); UROBILINOGEN,URINE 0.2 EU/dL (<2.0)
[2023-01-12 12:40] LABS: BACTERIA,URINE FEW (NEGATIVE); EPITHELIAL CELLS,URINE MANY (NONE-FEW); RBC,URINE 0-1 (0-2/HPF)
== END 2023-01-12 12:52 | disposition home or self-care (01) ==
LOC: MW.ED 10:44
DX: R10.11 Right upper quadrant pain (principal); K21.9 Gastro-esophageal reflux disease without esophagitis; E66.9 Obesity, unspecified; Z20.822 Contact with and (suspected) exposure to COVID-19; Z68.41 Body mass index [BMI] 40.0-44.9, adult
CPT/HCPCS: 36415; 80053; 81001; 83690; 83735; 84703; 85025; 87635; 96361; 96374; 96375; 99284; A9270; J1200; J1885; J2765; J7030; U0002

== ENCOUNTER 2024-03-04 16:45 | Emergency (ER) | payer BC, MEDICAID ==
[2024-03-04 18:35] LABS: APPEARANCE,URINE SLT CLOUDY; BILIRUBIN,URINE NEGATIVE (NEGATIVE); COLOR,URINE YELLOW; GLUCOSE,URINE NEGATIVE (NEGATIVE); KETONES,URINE TRACE mg/dL (NEGATIVE); LEUKOCYTE ESTERASE,URINE MODERATE (NEGATIVE); NITRITE,URINE NEGATIVE (NEGATIVE); OCCULT BLOOD,URINE TRACE-INTACT (NEGATIVE); PROTEIN,URINE NEGATIVE (NEGATIVE); UROBILINOGEN,URINE 0.2 EU/dL (<2.0)
[2024-03-04 19:03] LABS: BACTERIA,URINE 1+ (NEGATIVE); MUCUS,URINE LIGHT (NONE-MOD); SQUAMOUS EPITHELIAL CELLS,UR MODERATE
[2024-03-04] MEDS: Ketorolac 30 MG/ML SDV IVPUSH ONE (19:15)
[2024-03-04] MEDS: Sodium Chloride 0.9% 1,000 ML IV ONE (19:15)
[2024-03-04 19:21] LABS: BASOPHILS ABSOLUTE AUTO 0.03 K/uL (0.00-0.20); BASOPHILS PERCENT AUTO 0.3 % (0.0-1.0); EOSINOPHILS ABSOLUTE AUTO 0.07 K/uL (0.00-0.45); EOSINOPHILS PERCENT AUTO 0.7 % (0.0-6.0); HEMATOCRIT 34.9 % (37.0-47.0); HEMOGLOBIN 11.6 g/dL (12.0-16.0); IMMATURE GRAN ABSOLUTE AUTO 0.02 K/uL (0.00-0.05); IMMATURE GRAN PERCENT AUTO 0.2 % (0.0-0.4); LYMPHOCYTES ABSOLUTE AUTO 3.19 K/uL (1.00-4.80); LYMPHOCYTES PERCENT AUTO 30.6 % (24.0-44.0); MEAN CORPUSCULAR HEMOGLOBIN 28.2 pg (28.0-32.0); MEAN CORPUSCULAR HGB CONC 33.2 g/dL (32.0-36.0); MEAN CORPUSCULAR VOLUME 84.9 fL (83.0-99.0); MEAN PLATELET VOLUME 8.8 fL (9.4-12.3); MONOCYTES ABSOLUTE AUTO 0.81 K/uL (0.00-0.80); MONOCYTES PERCENT AUTO 7.8 % (0.0-8.0); NEUTROPHILS PERCENT AUTO 60.4 % (41.0-71.0); PLATELET COUNT,PLT 328 K/uL (150-400); RED BLOOD CELL COUNT 4.11 M/uL (4.10-5.30); WHITE BLOOD CELL COUNT,WBC 10.42 K/uL (3.9-11.3)
[2024-03-04 19:37] LABS: CANDIDA DNA PROBE NEGATIVE (NEGATIVE); GARDNERELLA DNA PROBE NEGATIVE (NEGATIVE); TRICHOMONAS DNA PROBE NEGATIVE (NEGATIVE)
[2024-03-04 19:43] LABS: ALBUMIN 3.5 g/dL (3.4-5.0); BILIRUBIN TOTAL 0.3 mg/dL (0.2-1.0); CALCIUM 9.1 mg/dL (8.5-10.1); EST CRCL DRUG DOSING (CG) 72.42 mL/min; POTASSIUM,K 3.8 mmol/L (3.5-5.1); PROTEIN TOTAL,TP 7.1 g/dL (6.4-8.2)
[2024-03-04] MEDS: Iopamidol 755 MG/ML 500 ML Multipack Bottle IVPUSH ONE (20:06)
[2024-03-04] MEDS: Lidocaine 4% 1 each Patch TOP STA (21:10)
== END 2024-03-04 21:11 | disposition home or self-care (01) ==
LOC: MW.ED 16:45
DX: N30.00 Acute cystitis without hematuria (principal); K21.9 Gastro-esophageal reflux disease without esophagitis; E66.9 Obesity, unspecified; Z75.8 Other problems related to medical facilities and other health care; Z79.899 Other long term (current) drug therapy; Z68.38 Body mass index [BMI] 38.0-38.9, adult
CPT/HCPCS: 36415; 74177; 80053; 81001; 81025; 85025; 87086; 87480; 87510; 87660; 96361; 96374; 99284; A9270; J1885; J7030; Q9967